=== PATIENT | male | born 1965 | race Caucasian/White ===

== ENCOUNTER → 2017-11-04 | Outpatient (CLI) | payer BC | END | disposition home or self-care (01) | LOC: GMAB 12:53 | PROVIDERS: ATTEND Family Medicine | DX: M10.9 Gout, unspecified (principal); K62.9 Disease of anus and rectum, unspecified; L97.429 Non-pressure chronic ulcer of left heel and midfoot with unspecified severity; Z00.01 Encounter for general adult medical examination with abnormal findings ==

== ENCOUNTER 2019-01-03 10:44 | Inpatient (IN) | payer BC, MEDICAID ==
--- NOTE | 2019-01-03 11:34 | ED.PDOC ---
History of Present Illness - General Chief Complaint: Abdominal Pain Stated Complaint: abdominal pain Time Seen by Provider: 01/03/19 11:22 Information Source: patient Exam Limitations: no limitations - History of Present Illness Initial Comments: Don Stark 53 y/o male brought by with sharp abdominal pain after he was unable to reduce ventral hernia this am had previous surgery in the past for umbilical hernia but noted recurrence seen local surgeon here in [place] recommending surgery but patient did not have follow up appointment.Also wears abdominal binder.No nausea/vomiting,no dysuria,no hematuria,no diarrhea or constipation.Had 5 cans of beers last night. Abdominal Pain Onset Location: other - midline Pain Radiation: no radiation Quality: moderate, dull Timing/Duration: 1-3 hours Improving Factors: nothing Worsening Factors: nothing Associated Symptoms: denies symptoms Review of Systems - Review of Systems Constitutional: States: no symptoms reported EENTM: States: no symptoms reported Respiratory: States: no symptoms reported Cardiology: States: no symptoms reported Gastrointestinal/Abdominal: States: see HPI Genitourinary: States: no symptoms reported Musculoskeletal: States: no symptoms reported Neurological: States: no symptoms reported All other Systems: Reviewed and Negative, No Change from Baseline Past Medical History (General) - Patient Medical History Hx Stroke: No Hx Congestive Heart Failure: No Hx Hypertension: Yes Hx Diabetes: Yes Hx Other PMH: Yes - neuropathy Surgical History: appendectomy - Vaccination History Hx Influenza Vaccination: No Hx Pneumococcal Vaccination: No - Social History Hx Tobacco Use: Yes Hx Alcohol Use: Yes - 5 beers or 2 shots of whiskey Hx Physical Abuse: No Hx Emotional Abuse: No Family Medical History - Family History Father Family History: Unknown Living Status: Unknown Hx Cardiac Disease: Yes - dad Hx Family;Other: MOM -liver cirrhosis Physical Exam - Physical Exam General Appearance: Alert, Comfortable, No apparent distress Eyes, Ears, Nose, Throat Exam: normal ENT inspection Neck: non-tender, full range of motion, supple, normal inspection Respiratory: chest non-tender, lungs clear, normal breath sounds, no respiratory distress Cardiovascular/Chest: normal peripheral pulses, regular rate, rhythm, no murmur Peripheral Pulses: No deficit Gastrointestinal/Abdominal: soft, other - reducible ventral hernia Back Exam: no CVA tenderness, no vertebral tenderness Neurologic: alert, oriented x 3 Skin Exam: normal color, warm/dry Progress - Progress Progress: 01/03/19 13:24 Vital Signs - 8 hr 01/03/19 01/03/19 10:58 11:54 Temperature 97.7 F Pulse Rate [ 88 82 Left Brachial] Respiratory 20 20 Rate Blood Pressure 151/110 156/112 [Left Arm] O2 Sat by Pulse 95 95 Oximetry - Results/Orders Results/Orders: 01/03/19 11:00 CARDIAC PANEL,ER Stat HEPATIC FUNCTION PANEL Stat LIPASE Stat 01/03/19 12:29 Binder:Abdominal .ONCE 01/03/19 15:15 LIPID PANEL Stat 01/03/19 15:18 GAMMA GLUTAMYL TRANSFERASE Stat Laboratory Results - last 24 hr 01/03/19 01/03/19 11:00 12:38 WBC 9.2 RBC 4.35 L Hgb 15.9 Hct 45.8 MCV 105.2 H MCH 36.5 H MCHC 34.7 RDW 14.9 H Plt Count 187 MPV 7.2 L Absolute Neuts (auto) 7.20 H Absolute Lymphs (auto) 1.10 Absolute Monos (auto) 0.70 Absolute Eos (auto) 0.10 Absolute Basos (auto) 0.10 Neutrophils % 78.3 H Lymphocytes % 12.1 L Monocytes % 7.5 Eosinophils % 1.5 Basophils % 0.6 RBC Morphology Plts gloria adequate PT 9.7 INR 0.97 PTT (SP) 30.0 Sodium 129 L Potassium 3.9 Chloride 93 L Carbon Dioxide 23 Anion Gap 16.9 BUN 7 Creatinine 0.55 L BUN/Creatinine Ratio 12.7 Random Glucose 93 Serum Osmolality 256.6 L Calcium 9.3 Magnesium 1.2 L Total Bilirubin 1.0 Direct Bilirubin 0.2 Indirect Bilirubin 0.8 AST 39 ALT 27 Alkaline Phosphatase 87 Creatine Kinase 29 L CK-MB (CK-2) 1.3 CK-MB (CK-2) % 4.48 H Troponin I < 0.02 Serum Total Protein 7.9 Albumin 3.9 Lipase 635 H Urine Color Yellow Urine Appearance Clear Urine pH 6.0 Ur Specific [place] 1.015 Urine Protein 100 H Urine Glucose (UA) Negative Urine Ketones Negative Urine Blood Small H Urine Nitrite Negative Urine Bilirubin Negative Urine Urobilinogen 0.2 Ur Leukocyte Esterase Negative Urine RBC 0-1 Urine WBC 0 Ur Epithelial Cells 0 Urine Bacteria 0 - EKG/XRAY/CT XRAY: chest - no acute process identified Xray Comments: abd-sono:no stone CBD or gallbladder CT Ordered: Yes - abd /p-stranding tail/body of pancreas;? pseudocyst Departure - Departure Clinical Impression: Ventral hernia without obstruction or gangrene Acute pancreatitis Qualifiers: Pancreatitis type: unspecified pancreatitis type Acute pancreatitis complication: unspecified Qualified Code(s): K85.90 - Acute pancreatitis without necrosis or infection, unspecified Time of Disposition: 15:23 Disposition: Admit Patient Condition: Fair Departure Forms: Patient Portal Self Enrollment Referrals: Shravan Estrada MD [Primary Care Provider] - 1-2 Weeks Home Medications: Ambulatory Orders Allopurinol 300 mg PO DAILY 01/03/19 Amlodipine Besylate 5 mg PO DAILY 01/03/19 Furosemide [Lasix] 20 mg PO DAILY 01/03/19 Lisinopril 20 mg PO BID 01/03/19 Metformin HCl 500 mg PO BID 01/03/19 Potassium Chloride [Micro-K] 10 meq PO DAILY 01/03/19 Decision To Admit - Decistion To Admit Decision to Admit Reason: Admit from ER Decision to Admit Date: 01/03/19 Decision to Admit Time: 15:22 - D/W Prasanth Lanier-ANP/Hospitalist
--- NOTE | 2019-01-03 12:20 | CT ---
Study: CT abdomen and pelvis. Indication: pain Technique: CT of the abdomen and pelvis obtained without intravenous contrast. This exam was performed according to our departmental dose-optimization program, which includes automated exposure control, adjustment of the mA and/or kV according to patient size and/or use of iterative reconstruction technique. Comparison: January 28, 2016. Findings: Patchy atelectasis in the lingula. Coronary artery and abdominal aortic atherosclerosis. Liver and gallbladder are unremarkable. Bilateral adrenal gland thickening, likely hyperplasia. Inflammation about the pancreatic tail and body junction consistent with acute pancreatitis. At the pancreatic tail there is a 1.6 cm fluid density lesion which is new compared to prior and may reflect a pseudocyst. Fluid noted about the spleen. Mild to moderate bilateral perinephric stranding, left greater than right, nonspecific. No hydronephrosis or nephrolithiasis. Bladder and prostate gland unremarkable. Progressed left paraumbilical hernia containing herniated omentum as well as a portions of the sigmoid colon and multiple loops of small bowel. No obstruction identified at this time. Stomach unremarkable. Appendix likely surgically absent. Scattered reactive size upper abdominal lymph nodes. No free air. Degenerative changes of the spine noted. Impression: Acute pancreatitis at the junction of the pancreatic body and tail with a low-density lesion at this site, likely a pseudocyst. Follow-up examination with contrast can be performed in 6 months to ensure resolution and no underlying mass lesion. Progressed left periumbilical hernia containing herniated loops of small bowel and sigmoid colon as well as omentum. Surgical consultation advised. No obstruction identified at this time. Additional findings as above. Electronically signed by: Eloy Andino MD 01/03/2019 12:18 PM COMMUTATOR OPERATOR
--- NOTE | 2019-01-03 12:50 | RAD ---
EXAM DESCRIPTION: Chest,1 View CLINICAL HISTORY: 53 years Male, pain COMPARISON: None. TECHNIQUE: AP portable chest. FINDINGS: Heart size is normal with normal pulmonary vascularity. No consolidating infiltrate. Left hemidiaphragm is mildly elevated. No pulmonary mass or worrisome nodule. No pneumothorax or pleural effusion. Bones are unremarkable. IMPRESSION: No acute process is identified in the chest. Electronically signed by: Parviz Banegas MD 01/03/2019 12:48 PM CHILD DAYCARE WORKER
--- NOTE | 2019-01-03 13:59 | US ---
EXAM DESCRIPTION: Gall Bladder: ULTRASOUND. CLINICAL HISTORY: pain epigastric and right upper quadrant. COMPARISON: CT abdomen and pelvis on this visit. TECHNIQUE: Transabdominal scanning: Ely-scale and Doppler modes. FINDINGS: Gallbladder: normal size, shape, echogenicity; no intraluminal stones or sludge. No fluid around the gallbladder. No wall thickening. 2.6 mm. Non-tender with transducer pressure. Common bile duct: caliber 3.9 mm within normal limits. Liver: Increased echogenicity; contour liver capsule smooth where seen. Minimal fluid around the liver. Intrahepatic biliary ducts normal caliber. Doppler hepatopedal flow portal vein.. Long axis right lobe 18 cm. Pancreas: Not well seen. Duct not seen. Aorta: Not well seen. Right kidney: 11.7 cm long axis. Normal cortical thickness and echogenicity. No hydronephrosis, perinephric fluid. Normal vascularity. IMPRESSION: 1. Liver borderline enlarged with fatty steatosis. Normal vascular caliber and flow and normal ducts. Minimal fluid abutting the liver. Gallbladder and common bile duct unremarkable.. 2. Unable to evaluate the pancreas due to patient body habitus and intestinal gas. Consider follow-up CT scan abdomen and pancreas with IV contrast in 6 month interval to evaluate possible pseudocyst seen on CT scan today. 3. Right kidney negative. Electronically signed by: Kelechi Salas MD 01/03/2019 1:56 PM SIGNAL INTELLIGENCE ANALYST
[2019-01-03] MEDS ORDERED: MAGNESIUM SULFATE PREMIX 2GM 2 GM in PREMIX BAG 1 BAG IVPB ONE (14:05)
[2019-01-03] MEDS ORDERED: MAGNESIUM SULFATE PREMIX 2GM 50 ML IVPB ONE (14:35)
[2019-01-03] MEDS ORDERED: GLUCAGON INJ 1 MG VIAL SUBCU PRN (15:20)
[2019-01-03] MEDS ORDERED: MORPHINE SULFATE INJ 10 MG/ML VIAL IV PRN (15:20)
[2019-01-03] MEDS ORDERED: DEXTROSE 50% 25 GM/50 ML SYG IV PRN (15:20)
[2019-01-03] MEDS ORDERED: SODIUM CHLORIDE 0.9% (FLUSH) 10 ML SYG IV PRN (15:20)
[2019-01-03] MEDS ORDERED: ONDANSETRON INJ 4 MG/2 ML VIAL IV PRN (15:20)
[2019-01-03] MEDS ORDERED: KETOROLAC TROMETHAMINE INJ 30 MG/ML VIAL IV ONE (15:23)
[2019-01-03] MEDS ORDERED: PROMETHAZINE HCL INJ 25 MG in SODIUM CHLORIDE 0.9% 50ML 50 ML IVPB PRN (15:23)
[2019-01-03] MEDS ORDERED: LACTATED RINGERS 1,000 ML IVS ONE (15:25)
--- NOTE | 2019-01-03 15:57 | HP ---
SUPERVISING PHYSICIAN: Manpreet Arnold M.D. CHIEF COMPLAINT: Left upper quadrant abdominal pain. HISTORY OF PRESENT ILLNESS: Mr. Stark is a 53 year-old male patient that presented to the Emergency Department last night accompanied by his . He was complaining of sharp abdominal pain after he was unable to reduce a large ventral hernia the morning prior to admission. He had previous surgery in the [facility] for the umbilical hernia but noted that he had a recurrence and has seen Dr. Dasilva in the past who recommended that the patient again have surgery, but he did not followup with his appointments. He also normally wears an abdominal binder. He was denying and actual nausea or vomiting, diarrhea or constipation. He does note that he drinks approximately 5 cans of beer at night and had drank last night. He denies ever having any issues related to similar symptoms, such as pancreatitis in the past. His workup in the E. R. showed that he did have an elevated lipase and amylase with initial lipase showing to be at 635. Amylase was 348. His liver functions were showing just a slightly elevated bilirubin and he was showing a mild hyponatremia. Vital signs showed that he was hemodynamically stable and is afebrile, but hypertensive with a blood pressure of 151/110, heart rate 88, satting 95% with respirations 20, temperature 97.7. Initial diagnostics included an abdominal/pelvis CT that showed per radiology interpretation the noncontrast CT with acute pancreatitis to be at the junction of the pancreatic body with the tail with a lower density lesion at the same site, likely a pseudocyst. He then had a gallbladder ultrasound and per radiology interpretation was note of liver borderline enlarged with fatty steatosis. Gallbladder and common bile duct were unremarkable. Pancreas was unable to be evaluated due to body habitus and intestinal gas. His chest x-ray showed no acute processes of a single view chest. Laboratory studies showed that he was showing a normal white count of 9,800 but did have a left shift and his RBC indices indicated a macrocytic presentation. Given the patient's history of frequent alcohol consumption, findings on his CT, abdominal pains and laboratory studies consistent with acute pancreatitis, Dr. Chin requested the patient be admitted for continuation of workup and treatment of underlying acute pancreatitis. He was admitted in stable condition. PAST MEDICAL HISTORY: 1. Hypertension. 2. Morbid obesity. 3. Gout. 4. Large umbilical hernia. 5. Type 2 diabetes mellitus on oral therapy. 6. Peripheral neuropathies, a complication from diabetes. PAST SURGICAL HISTORY: 1. Appendectomy in 2000. 2. Hernia repair with double hernia. HOME MEDICATIONS: 1. Allopurinol 300 mg daily. 2. Potassium chloride 10 mEq daily. 3. Metformin 500 mg b.i.d. 4. Lisinopril 20 mg b.i.d. 5. Lasix 20 mg daily. 6. Amlodipine 5 mg daily. ALLERGIES: NO KNOWN DRUG ALLERGIES. FAMILY HISTORY: Positive for hypertension in his father as well as deep venous thrombosis. Maternal grandfather had emphysema. Mother had type 2 diabetes. SOCIAL HISTORY: The patient is unemployed and on disability. He is by common law. Lives in [place], [place]. He has 4 stepchildren. He is a current tobacco smoker, 1 to 1-1/2 packs a day. He also drinks alcohol on a regular basis, typically daily. He initially reports that he drinks 3 to 5 beers and sometimes whiskey. He denied any recent binges. He denies any illicit drug usage recently, but has tried cocaine, LSD and marijuana in the past. REVIEW OF SYSTEMS: CONSTITUTIONAL: Denies any general malaise, weakness, fevers, chills, or unintentional weight changes. HEENT: Negative for any nasal congestion, ear ache, sore throat, headaches or visual disturbances. CHEST: Negative for any shortness of breath, wheezing, coughing, hemoptysis. CARDIOVASCULAR: Negative for any chest pains, palpitations, syncopal episodes or peripheral edema. GASTROINTESTINAL: As noted in History of Present Illness with left upper quadrant pain, negative for any reported nausea or vomiting, diarrhea or constipation. GENITOURINARY: Denies any dysuria, hematuria or polyuria. MUSCULOSKELETAL: Negative for any joint swelling or arthralgias. Positive for peripheral neuropathies in bilateral feet, complications from diabetes. NEUROLOGIC: Negative for any seizures, ataxia, syncopal episodes, vision changes or other focal deficits. Again positive for peripheral neuropathies. PHYSICAL EXAMINATION: VITAL SIGNS: Temperature in the E. R. was 97.7, pulse 88, blood pressure 151/110, respirations 20, satting 95% on room air. Admission weight is 85.4 kg. GENERAL: On admission to the Medical/Surgical floor the patient appears to be comfortable in no acute distress. He appears quite older than his stated age, very unkempt, disheveled. He is alert. HEENT: Tympanic membranes were partially obscured by cerumen bilaterally. Oropharynx was pink with dry mucosal membranes. Posterior pharynx was without any abnormal findings. No lesions were noted. NECK: Supple, non-tender with full range of motion. No jugular venous distention. CHEST: Lung sounds were clear throughout, just slightly diminished towards the bases. CARDIOVASCULAR: Regular rate and rhythm without any notable murmurs, gallops, or rubs. ABDOMEN: Obese with a very large umbilical hernia that is reducible without any notable complications on palpation. No rebound tenderness. No guarding. There is pain on palpation to the left upper quadrant. EXTREMITIES: Without any clubbing, cyanosis or edema. There is a large ecchymotic area on his right knee that is old in appearance reported from a fall in the past week with no deformity. BACK: Negative for CVA tenderness or paravertebral tenderness. No traumatic findings. NEUROLOGIC: He is alert and oriented times three. Facial features were symmetrical. Extraocular movements are within normal limits. There was no notable nystagmus. Facial features were symmetrical. No tremors noted. SKIN: [place], warm and dry with no obvious lesions, rashes, moles or sores. PSYCHIATRIC: He has had a very flat affect. Thought process is adequate. He denies any suicidal or homicidal ideations. No reported hallucinations, visual or tactile. LABORATORY: White count 9,200, hemoglobin 15.9, hematocrit 35.8. RBC indices indicated a macrocytic presentation with platelet count 187,000. Differential showed to be a slight left shift. Coagulation studies showed normal PT and PTT. Chemistries showed a mild hyponatremia at 129 with potassium 3.9, BUN 7, creatinine 0.55 with glucose 93, serum osmolality 256, calcium 9.3, magnesium 1.2. Iron studies are pending. Ferritin is pending. Liver functions are showing to be within normal limits except for a GGT that was elevated at 202. Troponin was less than 0.02. Lipid panel showed triglycerides at 59, cholesterol 161, LDL 40, HDL 100. Lipase 635. Vitamin B12, serum folate and folate were pending. Urinalysis showed 100 protein with small amount of blood. Otherwise within normal limits. MICROBIOLOGY: No microbiology specimens submitted. RADIOLOGY: He had an abdominal/pelvis x-ray without contrast in the E. R. and per radiology interpretation was significant for acute pancreatitis at the junction of the pancreatic body and tail with low density lesion at same site, likely a pseudocyst. He then had an ultrasound of the gallbladder and pancreas with the gallbladder not visualized due to body habitus and bowel gas per radiology interpretation as well as liver borderline enlarged with fatty steatosis. Normal vascular caliber and flow, and normal ducts. Minimal fluid abutting the liver. Gallbladder and common bile duct were noted to be unremarkable. Right kidney was unremarkable. Chest x-ray, single view chest in the E. R. shows no acute process identified in the chest. ASSESSMENT: 1. Acute pancreatitis by both laboratory studies with an elevated lipase and CT findings with a possible pancreatic pseudocyst, acute onset secondary to alcohol consumption and abuse. 2. Electrolyte imbalance to include a hyponatremia and hypomagnesemia secondary to alcohol abuse and consumption. 3. Probable pernicious anemia with RBC indices indicating macrocytic presentation with H&H possibly elevated due to dehydration with B12 and iron studies pending. 4. Hepatomegaly with findings of fatty steatosis due to chronic alcohol consumption likely alcoholic fatty liver. 5. Large ventral hernia complicated by morbid obesity without any current findings of acute complications. 6. Elevated liver functions to include GGT likely secondary to alcoholic fatty liver with no current evidence of cirrhosis. 7. Hypertension poorly controlled complicated by chronic alcohol dependency and acute onset of pain. 8. History of gout. 9. Diabetes mellitus type 2 on oral therapy. 10. Chronic nicotine abuse in a current smoker. 11. History of chronic alcohol abuse with no current signs or symptoms of acute delirium or withdrawals. PLAN: The patient will be admitted for treatment of acute pancreatitis and precautions for acute alcohol withdrawal in a patient with known history of excessive alcohol consumption. He will be made NPO for bowel rest. Will put him on a sliding scale per protocol. Will replace his magnesium as needed parenterally as well as start him on a multivitamin banana bag with thiamine and folic acid. Will continue with IV fluids and monitor still amylase and lipase. As he progresses clinically will advance his diet to clear liquids if tolerated. Will anticipate his length of stay to be probably 2 to 3 days. Will review his medications and update those as needed and verified as well as address his hypertension as he gets better control of his pain. I will start him on some low dose Librium scheduled hopefully to prevent any acute delirium secondary to alcohol withdrawal. I did discuss with him his need to stop drinking as well as smoking and he understands those, but as of yet says he is not interested in doing either one of them. Will continue to enforce his need as well as better control of his diabetes and close followup with his primary care provider. Until he can transition to outpatient management will continue to monitor and treat as needed. #[id number] MTDD
[2019-01-03] MEDS ORDERED: NICOTINE PATCH 21 MG TD ONE (16:28)
[2019-01-03] MEDS: IV SET AND CAP CHANGE INJ INJ SCH (16:32)
[2019-01-03] MEDS: NICOTINE PATCH 21 MG TD SCH (16:39)
[2019-01-03] MEDS: KCL 20 MEQ/NS 1,000 ML IVS PRN (17:41)
[2019-01-03] MEDS: INSULIN LISPRO 100 UNITS/ML PEN SUBCU SCH (18:19)
[2019-01-03] MEDS ORDERED: cloNIDine HCL 0.1 MG TAB PO ONE (22:48)
[2019-01-03] MEDS ORDERED: LISINOPRIL 10 MG TAB ONE (22:54)
[2019-01-03] MEDS: NON-FORMULARY MEDICATION 1 EA MIS (Lisinopril [Lisinopril] 20 MG) PO SCH (22:57)
[2019-01-04] MEDS: KCL 20 MEQ/NS 1,000 ML IVS PRN ×3 (00:07→10:07)
[2019-01-04] MEDS: INSULIN LISPRO 100 UNITS/ML PEN SUBCU SCH ×4 (00:50→18:37)
[2019-01-04] MEDS ORDERED: LISINOPRIL 10 MG TAB ONE (07:26)
[2019-01-04] MEDS: NON-FORMULARY MEDICATION 1 EA MIS (Lisinopril [Lisinopril] 20 MG) PO SCH (08:57)
[2019-01-04] MEDS: NICOTINE PATCH 21 MG TD SCH (08:58)
[2019-01-04] MEDS ORDERED: amLODIPine BESYLATE 5 MG TAB PO SCH (09:00)
[2019-01-04] MEDS ORDERED: amLODIPine BESYLATE 5 MG TAB PO ONE (10:52)
[2019-01-04] MEDS ORDERED: ALBUTEROL SULFATE 2.5 MG/3 ML VIAL NEB PRN (10:53)
[2019-01-04] MEDS ORDERED: SODIUM CHLORIDE 0.9% 1000ML 1,000 ML ONE (10:54)
[2019-01-04] MEDS ORDERED: THIAMINE HCL INJ 100 MG/ML VIAL ONE (10:54)
[2019-01-04] MEDS ORDERED: MULTIPLE VITAMIN 10 ML VIAL ONE (10:55)
[2019-01-04] MEDS ORDERED: chlordiazePOXIDE HCL 5 MG CAP ONE ×2 (10:55→14:44)
[2019-01-04] MEDS: MULTIPLE VITAMIN INJ 10 ML, THIAMINE HCL INJ 100 MG in SODIUM CHLORIDE 0.9% 1000ML 1,00... IVS SCH (11:00)
[2019-01-04] MEDS: chlordiazePOXIDE HCL 25 MG CAP PO SCH ×2 (11:01→14:46)
[2019-01-04] MEDS: FOLIC ACID,B6,B12 1 TAB PO SCH (11:02)
[2019-01-04] MEDS ORDERED: MAGNESIUM SULFATE PREMIX 2GM 2 GM in PREMIX BAG 1 BAG IVPB ONE (12:09)
[2019-01-04] MEDS ORDERED: MAGNESIUM SULFATE PREMIX 2GM 50 ML IVPB ONE (12:17)
[2019-01-04] MEDS: LEVALBUTEROL NEBS 1.25 MG/3 ML VIAL NEB SCH ×3 (14:19→23:47)
[2019-01-04] MEDS: LISINOPRIL 10 MG TAB PO SCH (20:43)
[2019-01-04] MEDS: chlordiazePOXIDE HCL 5 MG CAP PO SCH (20:45)
[2019-01-04] MEDS: ENOXAPARIN SODIUM 40 MG/0.4 ML SYG SUBCU SCH (20:45)
[2019-01-05] MEDS: INSULIN LISPRO 100 UNITS/ML PEN SUBCU SCH ×5 (00:13→21:17)
[2019-01-05] MEDS: KCL 20 MEQ/NS 1,000 ML IVS PRN ×2 (01:29→08:19)
--- NOTE | 2019-01-05 08:28 | PN ---
SUPERVISING PHYSICIAN: Alan Arnold MD DATE: 01/04/19 SUBJECTIVE: The patient says he is not having any pain today. He denied any nausea. He is requesting food, however, I have explained to him that we need to at least 12 to 24 hours NPO to allow time for his pancreas to calm down. We had a long discussion with him and his in regards to his alcohol abuse and nicotine addiction. Again, he is aware of this and contemplating possible ways to stop. However, he continues to present that he is really not interested in doing either one of those. He feels like he is able to control his diabetic neuropathy issues with his drinking. I again expressed to him that he needs to followup with his doctor as he has not seen him in well over a year. OBJECTIVE: VITAL SIGNS: Afebrile. Temperature 98.3. Pulse 84. Blood pressure 127/84. Respirations 18. Saturation 94% on room air. I&Os show positive balance of 1965 with 3065 in, 1100 out. Weight 75.4 kg. GENERAL: The patient appears much older than his stated age. He has had a shower today, so he is much more kept and not as disheveled. He is alert and shows no signs of any withdrawals currently. CHEST: Lungs remain clear throughout without any notable wheezing, but continues to be slightly diminished towards the bases. HEART: Regular rate and rhythm. ABDOMEN: Obese with extremely large ventral hernia with no signs of tenderness. He does have some continued mild tenderness on palpation to the left upper quadrant, but less compared to admission. Bowel sounds are present. EXTREMITIES: No cyanosis or edema. He continues to have a large old ecchymotic area to the right knee. NEUROLOGIC: Alert with no notable focal deficits, no tremors are noted. PSYCHIATRIC: Thought process is adequate. He still continues with a very slight affect. He continues to deny any hallucinations, either visual or tactile. LABORATORY: White count 7,700, hemoglobin down to 12.5, hematocrit 36.7 with continued macrocytosis and platelet count 138,000. Differential is without a left shift today. Chemistries show sodium 129, potassium 4.1, BUN 7, creatinine 0.52, serum osmolality 256, glucose 98, ferritin normal at 134, iron normal at 55, TIBC 278, iron saturation low at 19. ALT, AST and alkaline phosphatase are normal. We will repeat a GTT in the morning. Amylase 348, lipase down to 196, vitamin B12 291, folate 3.85. ASSESSMENT: 1. Acute pancreatitis demonstrated on laboratory studies including elevated lipase and amylase and CT findings with a possible pancreatic cyst, secondary to alcohol consumption and abuse. 2. Electrolyte imbalance with a persistent hyponatremia and hypomagnesemia, requiring ongoing evaluation and treatment, secondary to alcohol abuse and consumption. 3. Questionable pernicious anemia with macrocytosis and a slightly anemic presentation, probably due to chronic alcohol abuse. 4. Hepatomegaly with findings of fatty steatosis on ultrasound, probably due to chronic alcohol consumption and likely alcoholic fatty liver. 5. Large ventral hernia complicated by morbid obesity without any current complications. 6. Elevated GGT levels likely secondary to chronic alcohol consumption and alcoholic fatty liver with no current evidence of cirrhosis. 7. Hypertension, poorly controlled complicated by chronic alcohol dependency and likely acute pain from acute pancreatitis. 8. History of gout. 9. Diabetes mellitus, type 2, on oral therapy. 10. Chronic nicotine abuse in a current smoker. 11. History of chronic alcohol abuse without any current signs of acute delirium or withdrawals. PLAN: We will continue with the patient NPO and on fluids tonight. He is on sliding scale and has good control of his blood sugars. We will follow his amylase and lipase and labs including BMP to hopefully correct the hyponatremia and magnesium levels. He is on low dose Librium 10 mg to prevent secondary alcohol withdrawal symptoms. I started him on multivitamin infusion with thiamine and oral folic acid. Again, I reinforced the need to stop drinking and smoking. Again, the patient is not showing any evidence of motivation to do so, but we will continue to reinforce. Once transitioned to outpatient management, he will need close followup with his primary care provider who was Dr. Estrada. Since has not seen Dr. Estrada in well over a year, he is not being well controlled on either his hypertension or diabetes given his neuropathy and current blood pressures. Until he transitions to outpatient therapy, we will continue to monitor and treat as needed. #[id number] [facility]
[2019-01-05] MEDS: amLODIPine BESYLATE 5 MG TAB PO SCH (08:40)
[2019-01-05] MEDS: NICOTINE PATCH 21 MG TD SCH (08:41)
[2019-01-05] MEDS: chlordiazePOXIDE HCL 5 MG CAP PO SCH ×3 (08:41→20:44)
[2019-01-05] MEDS: FOLIC ACID,B6,B12 1 TAB PO SCH (08:41)
[2019-01-05] MEDS: LISINOPRIL 10 MG TAB PO SCH ×2 (08:41→20:45)
[2019-01-05] MEDS: LEVALBUTEROL NEBS 1.25 MG/3 ML VIAL NEB SCH ×2 (08:54→16:25)
[2019-01-05] MEDS ORDERED: MULTIPLE VITAMIN 10 ML VIAL ONE (11:19)
[2019-01-05] MEDS ORDERED: THIAMINE HCL INJ 100 MG/ML VIAL ONE (11:19)
[2019-01-05] MEDS ORDERED: SODIUM CHLORIDE 0.9% 1000ML 1,000 ML ONE (11:19)
[2019-01-05] MEDS: MULTIPLE VITAMIN INJ 10 ML, THIAMINE HCL INJ 100 MG in SODIUM CHLORIDE 0.9% 1000ML 1,00... IVS SCH (11:21)
[2019-01-05] MEDS ORDERED: MAGNESIUM SULFATE PREMIX 2GM 2 GM in PREMIX BAG 1 BAG IVPB ONE (15:22)
[2019-01-05] MEDS ORDERED: MAGNESIUM SULFATE PREMIX 2GM 50 ML IVPB ONE (15:34)
--- NOTE | 2019-01-05 17:13 | PN ---
DATE: 01/05/19 SUPERVISING PHYSICIAN: Manpreet Arnold M.D. SUBJECTIVE: The patient is sitting up in his chair. He has no complaints of abdominal pain, nausea or vomiting. He has not required any pain medication since yesterday nor has he had any antinausea medicine. He tolerated his clear liquid breakfast and lunch without problem. Again, we discussed his smoking cessation as well as stopping alcohol consumption. We also spoke about his followup with a physician and he will need to see a surgical consultation due to his umbilical hernia. OBJECTIVE: VITAL SIGNS: Temperature 98.6, heart rate 78, blood pressure 133/87, respiratory rate 20, O2 sat 100% on room air. RESPIRATORY: Essentially clear to auscultation bilaterally. He is slightly diminished at the bases. CARDIAC: Regular rate and rhythm. GASTROINTESTINAL: Abdomen is soft. It is nondistended, non-tender. He does have a very large umbilical hernia. Bowel sounds are positive. NEUROLOGIC: He is awake, alert and oriented times three. LABORATORY: Blood sugars have run between 85 and 117. Sodium 130, potassium 4.1, chloride 101, carbon dioxide 21, BUN 6, creatinine 0.45, calcium 8.2, magnesium 1.6. Amylase 209, lipase 148. All other labs and films have been reviewed via the EMR. ASSESSMENT: 1. Acute pancreatitis demonstrated on laboratory studies including elevated lipase and amylase and CT findings showing a possible pancreatic cyst, likely secondary to alcohol consumption and abuse. 2. Electrolyte imbalance with persistent hyponatremia and hypomagnesemia, requiring supplementation. 3. Questionable pernicious anemia with macrocytosis and a slightly anemic presentation, may be due to chronic alcohol abuse. 4. Hepatomegaly with findings of fatty steatosis on ultrasound. 5. Large umbilical hernia complicated by morbid obesity without any current complications and needing surgical consultation as an outpatient no discharge. 6. Elevated GGT levels likely secondary to chronic alcohol consumption and alcoholic fatty liver disease with no current evidence of cirrhosis. 7. Hypertension, poorly controlled. 8. History of gout. 9. Type 2 diabetes mellitus. 10. Chronic nicotine abuse in a current smoker. 11. History of chronic alcohol abuse without any current signs of acute delirium or withdrawals. PLAN: We will continue present supportive care. I have advanced his diet earlier today to clear liquids. He has tolerated that without any issues and have advanced it to a bland diet this evening. I have discontinued his IV. I will repeat his lab in the morning. I will also discuss his case with Dr. Dasilva. He will not see him in the hospital, but will need a surgical consultation on discharge. If he continues without any needs for antiemetics or pain medications and his amylase and lipase improve overnight, he may be able to be discharged tomorrow or the next day with close followup with his primary care physician. Otherwise will continue to monitor him closely and follows a needed. Dr. Arnold is the collaborating physician available for consultation. #[id number] [facility]
[2019-01-05] MEDS: ENOXAPARIN SODIUM 40 MG/0.4 ML SYG SUBCU SCH (20:46)
[2019-01-06] MEDS: LEVALBUTEROL NEBS 1.25 MG/3 ML VIAL NEB SCH ×2 (00:35→08:55)
[2019-01-06] MEDS: INSULIN LISPRO 100 UNITS/ML PEN SUBCU SCH ×2 (07:21→11:45)
[2019-01-06] MEDS: chlordiazePOXIDE HCL 5 MG CAP PO SCH ×2 (08:05→14:43)
[2019-01-06] MEDS: LISINOPRIL 10 MG TAB PO SCH (08:05)
[2019-01-06] MEDS: FOLIC ACID,B6,B12 1 TAB PO SCH (08:05)
[2019-01-06] MEDS: amLODIPine BESYLATE 5 MG TAB PO SCH (08:06)
[2019-01-06] MEDS: NICOTINE PATCH 21 MG TD SCH (08:06)
[2019-01-06] MEDS: MULTIPLE VITAMIN INJ 10 ML, THIAMINE HCL INJ 100 MG in SODIUM CHLORIDE 0.9% 1000ML 1,00... IVS SCH (11:00)
[2019-01-06 14:15] VITALS: BP 118/83; TEMP 98; O2SAT 100
[2019-01-06] MEDS: IV SET AND CAP CHANGE INJ INJ SCH (16:21)
--- NOTE | 2019-01-10 09:19 | DS ---
SUPERVISING PHYSICIAN: Alan Arnold MD DISCHARGE DIAGNOSIS: 1. Acute pancreatitis demonstrated on laboratory studies including elevated lipase and amylase and CT findings showing a possible pancreatic cyst, likely secondary to alcohol consumption and abuse. 2. Electrolyte imbalance with persistent hyponatremia and hypomagnesemia, requiring supplementation. 3. Questionable pernicious anemia with macrocytosis and a slightly anemic presentation, may be due to chronic alcohol abuse. 4. Hepatomegaly with findings of fatty steatosis on ultrasound. 5. Large umbilical hernia complicated by morbid obesity without any current complications and needing surgical consultation as an outpatient on discharge. 6. Elevated GGT levels likely secondary to chronic alcohol consumption and alcoholic fatty liver disease with no current evidence of cirrhosis. 7. Hypertension, poorly controlled. 8. History of gout. 9. Type 2 diabetes mellitus. 10. Chronic nicotine abuse in a current smoker. 11. History of chronic alcohol abuse without any current signs of acute delirium or withdrawals. HISTORY OF PRESENT ILLNESS: This is a 53-year-old male patient who came to the hospital Emergency Department on the night prior to his admission. He complained of sharp abdominal pain after he was unable to reduce a large umbilical hernia the morning prior to admission. He had previous surgery in the past for the umbilical hernia but noted that he had a recurrence and has seen Dr. Dasilva in the past who recommended that the patient again have surgery, but he did not followup with his appointments. He also normally wears an abdominal binder, but since he did not followup on his appointments, he is not wearing it as recommended. He drinks approximately 5 cans of beer at night and had drank last night. His workup in the Emergency Room showed that he did have an elevated lipase and amylase with initial lipase at 635. Amylase was 348. His liver function tests showed a slightly elevated bilirubin and a mild hyponatremia. Vital signs showed that he was hemodynamically stable and afebrile, but hypertensive with a blood pressure of 151/110, heart rate 88, O2 saturation 95% with respirations 20, temperature 97.7. Initial diagnostics included an abdominal/pelvis CT that showed per radiology interpretation the noncontrast CT with acute pancreatitis to be at the junction of the pancreatic body with the tail with a lower density lesion at the same site, likely a pseudocyst. He then had a gallbladder ultrasound and per radiology interpretation showed liver borderline enlarged with fatty steatosis. Gallbladder and common bile duct were unremarkable. Pancreas was unable to be evaluated due to body habitus and intestinal gas. His chest x-ray showed no acute processes on a single view chest. Laboratory studies showed a normal white count of 9,800 but did have a left shift on his differential and his RBC indices indicated a macrocytic presentation. Given the patient's history of frequent alcohol consumption, findings on his CT, abdominal pains and laboratory studies consistent with acute pancreatitis, Dr. Chin requested the patient be admitted for continuation of workup and treatment of underlying acute pancreatitis. He was admitted to the hospital in stable condition. HOSPITAL COURSE: The patient was admitted and treated with bowel rest with fluids. He was put on a sliding scale insulin per protocol. He was given magnesium replacement. He was also given a banana bag with multivitamin, thiamine and folic acid. His amylase and lipase were monitored daily. His home medications were updated. It was discussed with the patient at length that he needed to stop drinking alcohol to excess as well as stopping smoking. Librium was scheduled to prevent any alcohol withdrawal. He had minimal pain for the initial portion of his hospital stay and mild nausea. His diet was advanced slowly. He finally at 24 hours was pain free with no nausea or vomiting His diet was advanced slowly and he was eventually given a low-fat diet. I talked to Dr. Dasilva in regards to his very large umbilical hernia and he felt like he could have a workup as an outpatient on discharge for a cardiac stress test and a pulmonary evaluation. He was going to -[id number] -[id number]- stop smoking and drinking. We also discussed diabetic control to help his neuropathy symptoms. His diet was advanced slowly. He finally at 24 hours was pain free with no nausea or vomitingToday, he will be discharged home in stable condition. LABORATORY: WBCs remained stable running between 9.2 and 6.9. Hemoglobin 11.2, hematocrit 34.4. Platelet count 139. Sodium 130, potassium 3.6, chloride 102, BUN 7, creatinine 0.81. Blood sugars ran between 102 and 117. He had a slightly low magnesium, today it is 1.7 and that was replaced with magnesium. His bilirubin went down to 0.8. Amylase went down to 200. Lipase went down to 136. RADIOLOGY: As per history of present illness. DISCHARGE PLAN: The patient was to be discharged home in stable condition. It is again recommended that he quit smoking as well as quit drinking. At some point, he needs to have his large umbilical hernia evaluated. It would be beneficial to get cardiac and pulmonary clearance before surgery on the hernia. He is to have a low-fat diet, resume his physical activity as tolerated. He has an appointment with Dr. Estrada on 01/11/19 at 2:30 PM. He is to get lab prior to his appointment with Dr. Estrada. I have given him an order to do lab on Wednesday, January 10, 2019 for CMP, amylase and lipase. He is to return to the hospital for any problems or complications. 1. Potassium chloride. 2. Amlodipine 10 mg. 3. Allopurinol 300 mg. 4. Albumin nebulizers. 5. Furosemide. 6. Metformin. #[id number] [facility]
== END 2019-01-06 16:49 | disposition home or self-care (01) | DRG 439 ==
LOC: ER 10:44 → MS 15:56
PROVIDERS: ADMIT Nurse Practitioner Family; ATTEND Nurse Practitioner Acute Care
DX: K85.20 Alcohol induced acute pancreatitis without necrosis or infection (principal); E87.1 Hypo-osmolality and hyponatremia; K76.0 Fatty (change of) liver, not elsewhere classified; F10.20 Alcohol dependence, uncomplicated; K42.9 Umbilical hernia without obstruction or gangrene; I10 Essential (primary) hypertension; M10.9 Gout, unspecified; D51.0 Vitamin B12 deficiency anemia due to intrinsic factor deficiency; E86.0 Dehydration; E11.40 Type 2 diabetes mellitus with diabetic neuropathy, unspecified; E66.01 Morbid (severe) obesity due to excess calories; F17.210 Nicotine dependence, cigarettes, uncomplicated; Z79.84 Long term (current) use of oral hypoglycemic drugs; Z79.899 Other long term (current) drug therapy

== ENCOUNTER → 2019-01-09 | Outpatient (CLI) | payer BC, MEDICAID | LOC: LAB.O 13:24 | PROVIDERS: ATTEND Nurse Practitioner Acute Care | DX: K85.90 Acute pancreatitis without necrosis or infection, unspecified (principal) ==

== ENCOUNTER → 2019-06-14 | Outpatient (CLI) | payer BC, MEDICAID | LOC: YCFC.O 12:27 | PROVIDERS: ATTEND Family Medicine | DX: E87.1 Hypo-osmolality and hyponatremia (principal) ==

== ENCOUNTER → 2019-07-14 | Outpatient (CLI) | payer BC, MEDICAID | LOC: LAB.O 10:08 | PROVIDERS: ATTEND Family Medicine | DX: E11.9 Type 2 diabetes mellitus without complications (principal); I10 Essential (primary) hypertension; E87.1 Hypo-osmolality and hyponatremia; R53.83 Other fatigue ==

== ENCOUNTER → 2019-09-15 | Outpatient (CLI) | payer BC, MEDICAID ==
--- NOTE | 2019-09-16 12:05 | CT ---
Procedure: CT LUNG SCREENING Exam Date: 09/15/2019. Ordering Provider: Shravan Estrada Clinical Indication: NICOTINE DEPENDENCE . Current cigarette smoker. 55 pack years. This patient meets eligibility criteria for low-dose CT lung cancer screening. Comparison: Chest x-ray December 2018. Technique: Using a multislice scanner, sequential helical axial imaging was obtained in the thorax, 2.5 mm thickness, 2.5 mm separation, from the level of the thoracic inlet through the lung bases without IV contrast. A low dose protocol was utilized for BMI less than 30: BMI: 28.9. CTDI: 1.76 mGy. 120. kVp. 45 mA. 2D sagittal and coronal reconstructed images, 6.0 mm thickness, were obtained. This exam was performed according to our departmental dose optimization program which includes use of automated exposure control, adjustment of the mA and/or kV according to patient size and/or use of iterative reconstruction technique. Nodule measurements under 10 mm are given as mean value of 3 axes diameters. FINDINGS: Lungs and large airways: Small bilateral uniform blebs centrilobular distribution and more prevalent in the upper lung vyas. Subpleural 3 mm groundglass nodule lateral left upper lobe on image 2/54. Similar sized subpleural groundglass nodules right upper lobe. Pleural parenchymal scarring in the inferior right middle lobe and inferior lingula. 3 mm parenchymal nodule versus pleural thickening superior lateral and medial diaphragm on image 2/102. Pleura and space: Bilateral minimal focal thickening otherwise negative. Mediastinum and maggy: evaluation limited by low dose technique and lack of IV contrast. Normal sized lymph nodes. No dominant soft tissue masses. Heart and great vessels: Sclerotic coronary vessels with possible stents. Also atherosclerotic calcifications in the thoracic aorta and aortic arch Chest wall, lower neck, axillae: Evaluation also limited by same factors as described above. Bilateral scattered normal size axillary nodes. Upper abdomen: Evaluation limited by low-dose technique. Possible left adrenal mass 1.9 x 1.4 cm with Hounsfield density -24 consistent with an adenoma. No free fluid or free air in the included peritoneal space. Osseous structures: Evaluation limited by low dose MIP technique. Spondylosis of the included thoracic spine and minimal arthrosis of the bilateral sternoclavicular joints. No lytic or blastic lesions. IMPRESSION: Solid and groundglass subpleural nodules bilaterally 3 mm diameter or less. Nodule versus pleural thickening abutting left lateral hemidiaphragm. No abnormal nodule and no mass. No focal infiltrate . [facility] Best Practice Recommendations: please see below for Lung RADS category and FOLLOW-UP.* *Lung RADS category CATEGORY 2- Nodules with a very low likelihood (less than 1%) of becoming a clinically active cancer due to size or lack of growth. Nodules: Perifissural nodule(s) < 10 mm. (526mm3). Solid or part solid nodule(s) less than 6mm (113.1 mm3), new solid nodule less than 4mm (33.5 mm3). Ground glass nodule(s) less than 30mm (54044.2 mm3) or unchanged or slow growing ground glass nodule 30mm or greater. Cat 3 or 4 nodule unchanged for 3 or more months. FOLLOW-UP: Continue annual screening with a Low Dose Chest CT in 12 months for re-evaluation. Electronically signed by: Kelechi Salas MD 09/16/2019 12:03 PM CDT
--- NOTE | 2019-09-16 12:58 | CT ---
EXAM DESCRIPTION: Abdomen/Pelvis w/wo Contrast: Computed Tomography. CLINICAL HISTORY: PANCREATITIS WITHOUT NECROSIS OR INFECTION COMPARISON: None. TECHNIQUE: Spiral-axial scans at 5 x 5 mm intervals through the abdomen and pelvis before and after 75 mL Optiray 320 nonionic IV contrast. No oral contrast. Coronal and sagittal 2.0 mm reconstructions. 5 mm Delayed helical-axial scans, liver through the pubic symphysis. No adverse reactions. Total Exam DLP 2878.9 mGy - cm. This exam was performed according to our departmental CT dose-optimization program which includes automated exposure control, adjustment of the mA and/or kV according to patient size and/or use of iterative reconstruction technique; to reduce radiation dose to as low as reasonably achievable (ALARA). FINDINGS: Abdominal Wall/Back Soft Tissues: The umbilical hernia has enlarged since the prior study with the neck now measuring 2.3 cm craniocaudal and 4.7 cm transverse. The hernia sac measures 12.8 cm transverse, 11.1 cm craniocaudal and 4.6 cm AP. Small bowel can be seen in the hernia sac with air-fluid levels and minimal distention. Minimal fatty stranding in the mesentery or abutting the hernia neck and in the hernia sac with no dominant solid mass or cyst. Air-fluid levels also noted in the efferent and afferent small bowel segments around the hernia. Small bilateral inguinal hernias not containing bowel. Lung bases and pleura: Please see CT lung screening images and report from today. Liver, Stomach, Spleen, Adrenal Glands: 1.7 x 1.3 cm left adrenal mass with Hounsfield density -22. Consistent with a adrenal adenoma. Long axis right lobe of the liver 18.8 cm. No focal lesions and no ascites. Splenic calcifications. Stomach and other solid organs are negative. Pancreas, Gallbladder, Ducts: Negative. Pancreatitis has resolved since the prior study.. Kidneys and Ureters: Unremarkable except for atherosclerotic calcifications. Mesentery: Involved in the hernia as described above. Symmetric stranding and fascial thickening. No free air or free fluid. Aorta: Diffuse atherosclerotic calcifications predominantly infrarenal aorta extending into the bilateral common iliac arteries and common femoral arteries. Approximately 50% diameter stenosis bilateral common iliac arteries. Small Bowel: Multiple mild air-fluid levels with minimal distention but no transition point. Terminal Ileum/Cecum: Elevated from the normal position in the lateral right upper abdomen. Surgical clips in the inferior cecum at the site of appendiceal resection. Colon: Minimally distended. No significant air-fluid levels. Moderate redundancy of the sigmoid colon which extends into the right lower quadrant of the abdomen. Pelvic Organs: Minimal bladder distention with wall thickening and mass effect from the prostate gland which also has calcifications. Also mass effect on the seminal vesicles. No free fluid. Spine and Bony Pelvis: Spondylosis lower thoracic spine. No lytic or blastic lesions. IMPRESSION: 1. Pancreatitis has resolved since the prior study with no complications or evidence of mass. 2. Right periumbilical hernia has enlarged since the prior study at the opening and also in the sac which contains small bowel. Air-fluid levels and minimal distention within the sac and also in the afferent and efferent small bowel segments. Minimal edema but no fluid collection. This could indicate impending incarceration or obstruction. 3. Diffuse atherosclerotic calcification distal abdominal aorta and bilateral common iliac arteries with stenosis stable in the common iliac arteries. 3. Stable adrenal adenoma on the left. Stable enlargement of the liver with no focal lesions. Electronically signed by: Kelechi Salas MD 09/16/2019 12:57 PM CDT
== END ==
LOC: CT 09:08
PROVIDERS: ATTEND Family Medicine
DX: Z87.891 Personal history of nicotine dependence (principal); K85.90 Acute pancreatitis without necrosis or infection, unspecified; K42.9 Umbilical hernia without obstruction or gangrene; I70.0 Atherosclerosis of aorta; I70.8 Atherosclerosis of other arteries; D35.00 Benign neoplasm of unspecified adrenal gland; R16.0 Hepatomegaly, not elsewhere classified; R91.8 Other nonspecific abnormal finding of lung field; I10 Essential (primary) hypertension
CPT/HCPCS: 36415; 74178; 82565; 84520; G0297

== ENCOUNTER → 2019-10-04 | Outpatient (CLI) | payer BC, MEDICAID ==
--- NOTE | 2019-10-04 09:58 | RAD ---
EXAM DESCRIPTION: Knee,Left Complete CLINICAL HISTORY: 54 years Male, PAIN IN LEFT KNEE TECHNIQUE: 3 views of the left knee were performed. COMPARISON: None available. FINDINGS: The visualized bones appear well mineralized. No acute fracture or dislocation. Mild tricompartmental osteoarthritis. The soft tissues appear grossly unremarkable. IMPRESSION: Mild tricompartmental osteoarthritis of the left knee. Electronically signed by: Jeanie Garcia MD 10/04/2019 9:[address] [facility]
== END ==
LOC: YCFC.O 09:18
PROVIDERS: ATTEND Family Medicine
DX: M17.12 Unilateral primary osteoarthritis, left knee (principal); E11.9 Type 2 diabetes mellitus without complications; I10 Essential (primary) hypertension

== ENCOUNTER → 2020-01-04 | Outpatient (CLI) | payer BC, MEDICAID | LOC: LAB.O 10:19 | PROVIDERS: ATTEND Family Medicine | DX: I10 Essential (primary) hypertension (principal); E11.9 Type 2 diabetes mellitus without complications; R74.8 Abnormal levels of other serum enzymes ==

== ENCOUNTER → 2020-05-03 | Outpatient (CLI) | payer BC, OTHER | LOC: YCFC.O 11:27 | PROVIDERS: ATTEND Family Medicine | DX: E11.9 Type 2 diabetes mellitus without complications (principal); I10 Essential (primary) hypertension; E53.8 Deficiency of other specified B group vitamins; R53.83 Other fatigue; Z12.5 Encounter for screening for malignant neoplasm of prostate ==

== ENCOUNTER → 2020-11-06 | Outpatient (CLI) | payer BC, OTHER | LOC: YCFC.O 09:25 | PROVIDERS: ATTEND Family Medicine | DX: E11.9 Type 2 diabetes mellitus without complications (principal); I10 Essential (primary) hypertension; E78.5 Hyperlipidemia, unspecified; R74.8 Abnormal levels of other serum enzymes ==

== ENCOUNTER → 2020-12-10 | Outpatient (CLI) | payer BC, OTHER ==
--- NOTE | 2020-12-11 15:44 | CT ---
Procedure: CT LUNG SCREENING Exam Date: December 10, 2020 Ordering Provider: Shravan Estrada Clinical Indication: TOBACCO USE . Current cigarette smoker. 55 pack-years. This patient meets eligibility criteria for low-dose CT lung cancer screening. Comparison: Low-dose CT lung cancer screening examination August 2019. Technique: Using a multislice scanner, sequential helical axial imaging was obtained in the thorax, 2.5 mm thickness, 2.5 mm separation, from the level of the thoracic inlet through the lung bases without IV contrast. A low dose protocol was utilized for BMI less than 30: BMI: 29. CTDI: 1.75 mGy. 120. kVp. 45 mA. DLP 68 mGy-cm. 2D sagittal and coronal reconstructed images, 6.0 mm thickness, were obtained. This exam was performed according to our departmental dose optimization program which includes use of automated exposure control, adjustment of the mA and/or kV according to patient size and/or use of iterative reconstruction technique. Nodule measurements under 10 mm are given as mean value of 3 axes diameters. FINDINGS: Lungs and large airways: Small bilateral centrilobular blebs mostly in the upper lobes. Bilateral pleural-parenchymal scarring. No significant sized bilateral small ground nodules subpleural in the upper lobes stable since the prior study. No new nodules and no mass. No interval infiltrate or new focal process. Pleura and space: Stable with no acute process. Mediastinum and maggy: evaluation limited by low dose technique and lack of IV contrast. No interval change in small lymph nodes. No dominant soft tissue masses. Heart and great vessels: Coronary artery calcifications and atherosclerotic calcifications in the aortic arch, several brachiocephalic vessels, and descending thoracic aorta show no change since the prior study. Chest wall, lower neck, axillae: Evaluation also limited by same factors as described above. No interval change in bilateral, Normal-sized axillary and subclavian nodes. Upper abdomen: Evaluation limited by low-dose technique. Bilateral prominent adrenal glands with fatty density less than -20 consistent with adenomas and stable. No free air or free fluid. Atherosclerotic abdominal aorta and including major branch vessels. Calcification also stable. Osseous structures: Evaluation limited by low dose MIP technique. Multiple levels of thoracic spondylosis. Also shoulder, clavicle, and cisternal arthrosis. No interval change. IMPRESSION: 1. Minimal bilateral upper lobe emphysematous changes. Also stable bilateral subdural groundglass densities/nodules which are clinically insignificant in size. No abnormal nodules and no mass. No new focal process, no interval development of infiltrate. [facility] Best Practice Recommendations: please see below for Lung RADS category and FOLLOW-UP.* *Lung RADS category Category 1 - No nodule or definitely benign nodules (probability of malignancy less than 1%). Follow-up: Continue annual screening with Low Dose Chest CT in 12 months. Electronically signed by: Kelechi Salas MD 12/11/2020 3:42 PM [facility]
== END ==
LOC: CT 14:07
PROVIDERS: ATTEND Family Medicine
DX: Z72.0 Tobacco use (principal); J43.9 Emphysema, unspecified; R91.8 Other nonspecific abnormal finding of lung field

== ENCOUNTER 2020-12-13 10:16 | Inpatient (IN) | payer BC, OTHER ==
[2020-12-13] MEDS ORDERED: ONDANSETRON INJ 4 MG/2 ML VIAL IV ONE (10:32)
[2020-12-13] MEDS ORDERED: fentaNYL CITRATE INJ 50 MCG/ML 2 ML AMP IV ONE (10:32)
--- NOTE | 2020-12-13 10:37 | ED.PDOC ---
History of Present Illness - General Chief Complaint: Abdominal Pain Stated Complaint: left sided abd pain Time Seen by Provider: 12/13/20 10:22 - History of Present Illness Initial Comments: 55-year-old male positive past medical history of hypertension, diabetes, tobacco abuse, daily alcohol use of 8 beers presents to ED with acute onset of epigastric abdominal pain with posterior radiation into back. Patient has associated nausea with nonbloody nonbilious emesis. Patient does have a chronic cough due to his smoking and tobacco use, but denies any acute change. Denies any known sick exposures. He denies associated chest pain, shortness of breath, nasal congestion, sore throat, loss of taste or smell, diarrhea, or urinary symptoms. Denies alleviating/aggravating factors. Positive history of similar symptoms and states it was diagnosed as pancreatitis due to alcohol use. He has stopped using hard liquor and only drinks approximately 8 beers daily. Patient denies any other symptoms and/or complaints at this time. Review of Systems - Review of Systems Constitutional: Denies: chills, fever EENTM: Denies: nose congestion, throat pain Respiratory: States: cough - unchanged, chronic. Denies: short of breath Cardiology: States: edema - chronic, unchanged. Denies: chest pain Gastrointestinal/Abdominal: States: abdominal pain, nausea, vomiting. Denies: constipation, diarrhea Musculoskeletal: States: back pain. Denies: muscle pain Skin: Denies: change in color, rash Neurological: Denies: headache, numbness Hematologic/Lymphatic: Denies: easy bruising Past Medical History (General) - Patient Medical History Hx Seizures: Yes Hx Stroke: No Hx Asthma: No Hx of COPD: No Hx Congestive Heart Failure: No Hx Pacemaker: No Hx Hypertension: Yes Hx Diabetes: Yes Hx Gastroesophageal Reflux: Yes Hx MRSA: No - Vaccination History Hx Influenza Vaccination: Yes Hx Pneumococcal Vaccination: No - Social History Hx Tobacco Use: Yes Hx Alcohol Use: Yes - 5-6 daily mostly beer Hx Substance Use: No Hx Physical Abuse: No Hx Emotional Abuse: No Family Medical History - Family History Father Family History: Unknown Living Status: Unknown Hx Cardiac Disease: Yes - dad Hx Family;Other: MOM -liver cirrhosis Physical Exam - Physical Exam General Appearance: Alert, Other - non-toxic, not ill appearing, mild distress Eyes, Ears, Nose, Throat Exam: PERRL/EOMI, normal ENT inspection Neck: supple, normal inspection, other - No JVD Respiratory: no respiratory distress, no accessory muscle use, other - + rhonchi with trace rales, no wheezing, no tachypnea, no accessory muscle use Cardiovascular/Chest: regular rate, rhythm, no JVD, no murmur, other - +1 pitting edema BLE, symmetric Gastrointestinal/Abdominal: soft, other - +epigastric TTP, no rebound, no guarding, no peritoneal signs, periumbilical hernia is nontender with no signs of incarceration/strangulation, no CVAT bilaterally Back Exam: no CVA tenderness Extremity: non-tender, pedal edema Neurologic: alert, normal mood/affect, oriented x 3 Skin Exam: normal color, warm/dry, other - no rash, no jaundice, not pale Progress - Progress Progress: Yehuda José DO Emergency Medicine Physician [id number] Appropriate PPE of surgical mask, gown, gloves, and eye protection (if encounter >5 minutes) utilized with every patient encounter; in accordance with hospital policy. Presents for acute pancreatitis. Low clinical concern for abdominal dissection/aneurysm. No clinical concern for hernia incarceration/strangulation. I will perform imaging, labs, provide appropriate pharmacotherapy, and continue to monitor/reassess. Dispo will depend on imaging and lab results and overall course in ED. 12:22 I have consulted with Hospitalist Prasanth Lanier and discussed patient's case in ED. He agrees with admission of patient and requests starting patient on Librium due to concern for potential alcohol withdrawal. 12:25 Rechecked pt. NAD, VSS. I have discussed radiology results, lab results, my clinical impression, and diagnosis. I have also discussed need for admission. Pt voices understanding, agrees with plan, and all questions answered. - Results/Orders Results/Orders: EKG @1040: read @1044. NSR @ 83, LAFB, QRS 110, ND and QTc wnl, no ST elevations/depressions, nonspecific ST/T-wave changes. No STEMI. No prior EKG's in [facility] for comparison. 12/13/20 10:45 EKG STAT 12/13/20 12:21 ED Intent to Admit Routine 12/13/20 12:30 [email or web address] HCL [Librium] 50 mg PO Q6HR Laboratory Results - last 24 hr 12/13/20 12/13/20 12/13/20 10:30 10:30 10:30 WBC 7.0 RBC 3.84 L Hgb 13.0 L Hct 38.0 L MCV 99.1 H MCH 34.0 H MCHC 34.3 RDW 14.5 Plt Count 188 MPV 6.8 L Absolute Neuts (auto) 5.40 Absolute Lymphs (auto) 0.80 L Absolute Monos (auto) 0.50 Absolute Eos (auto) 0.30 Absolute Basos (auto) 0.10 Neutrophils % 76.7 Lymphocytes % 10.9 L Monocytes % 6.7 Eosinophils % 4.9 Basophils % 0.8 Sodium 121 L Potassium 5.6 H Chloride 94 L Carbon Dioxide 18 L Anion Gap 14.6 BUN 12 Creatinine 1.24 BUN/Creatinine Ratio 9.7 L Random Glucose 103 Serum Osmolality 244.1 L* Lactic Acid Calcium 8.8 Total Bilirubin 0.6 AST 24 ALT 24 Alkaline Phosphatase 64 Troponin I < 0.02 Serum Total Protein 7.1 Albumin 3.8 Globulin 3.3 Albumin/Globulin Ratio 1.2 Lipase 497 H Urine Color Urine Appearance Urine pH Ur Specific [place] Urine Protein Urine Glucose (UA) Urine Ketones Urine Blood Urine Nitrite Urine Bilirubin Urine Urobilinogen Ur Leukocyte Esterase Urine RBC Urine WBC Ur Epithelial Cells Urine Bacteria 12/13/20 12/13/20 10:30 11:43 WBC RBC Hgb Hct MCV MCH MCHC RDW Plt Count MPV Absolute Neuts (auto) Absolute Lymphs (auto) Absolute Monos (auto) Absolute Eos (auto) Absolute Basos (auto) Neutrophils % Lymphocytes % Monocytes % Eosinophils % Basophils % Sodium Potassium Chloride Carbon Dioxide Anion Gap BUN Creatinine BUN/Creatinine Ratio Random Glucose Serum Osmolality Lactic Acid 0.8 Calcium Total Bilirubin AST ALT Alkaline Phosphatase Troponin I Serum Total Protein Albumin Globulin Albumin/Globulin Ratio Lipase Urine Color Yellow Urine Appearance Clear Urine pH 5.0 Ur Specific [place] 1.015 Urine Protein 30 Urine Glucose (UA) Negative Urine Ketones Trace Urine Blood Trace-intact H Urine Nitrite Negative Urine Bilirubin Negative Urine Urobilinogen 0.2 Ur Leukocyte Esterase Negative Urine RBC 0-1 Urine WBC 0 Ur Epithelial Cells 1-3 Urine Bacteria 0 EXAM DESCRIPTION: CTA Abdomen (accession [id number]), CTA Pelvis (accession [id number]), CTA Chest (accession [id number]) CLINICAL HISTORY: 55 years Male, epigastric and mid abdominal pain, h/o pancreatiti TECHNIQUE: This exam was performed according to our departmental dose-optimization program, which includes automated exposure control, adjustment of the mA and/or kV according to patient size and/or use of iterative reconstruction technique. This examination was performed according to a CT angiographic (CTA) protocol with 3D post- processing. This involves 3D reconstructions, MIPS, volume rendered images and/or shaded surface rendering. COMPARISON: December 10, 2020 FINDINGS: The thyroid gland is unremarkable. No axillary adenopathy. Atherosclerotic plaque in the aortic arch. Coronary artery calcifications. No pericardial effusion. No mediastinal adenopathy. Suboptimal contrast bolus timing for evaluation of the pulmonary arteries. No pneumothorax. No pleural effusion. Scattered atelectasis and volume loss. No focal consolidation. No suspicious pulmonary nodule. The liver, gallbladder, portal vein, spleen and adrenal glands are unremarkable. Bilateral renal vascular calcifications. Symmetric renal parenchymal enhancement. No hydronephrosis. No urolithiasis. Unremarkable bladder. Acute uncomplicated pancreatitis. Surrounding peripancreatic fluid and edema. No parenchymal necrosis. No drainable fluid collection. Ventral abdominal wall hernia containing nonobstructed small bowel. The hernia sac measures 16.2 x 6.6 cm. No evidence of bowel obstruction or focal inflammatory change. No adenopathy. No focal fluid collection. No free air. Normal caliber abdominal aorta. Diffuse atherosclerotic disease. No acute or suspicious osseous abnormality. Scattered degenerative changes present. IMPRESSION: 1. Acute uncomplicated pancreatitis. 2. Ventral abdominal wall hernia containing nonobstructed bowel. 3. No evidence of acute process in the chest. Electronically signed by: Hoang Lara MD 12/13/2020 12:18 PM [employer] Vital Signs - 24 hr 12/13/20 10:27 Temperature 98.2 F Pulse Rate [ 85 Right Brachial] Respiratory 20 Rate Blood Pressure 159/91 [Right Arm] O2 Sat by Pulse 97 Oximetry Departure - Departure Clinical Impression: Acute hyponatremia, Alcohol dependence, daily use Acute pancreatitis Qualifiers: Pancreatitis type: alcohol induced Acute pancreatitis complication: unspecified Qualified Code(s): K85.20 - Alcohol induced acute pancreatitis without necrosis or infection Time of Disposition: 12:20 Disposition: Admit Patient Condition: Good Home Medications: Ambulatory Orders Lisinopril 20 mg PO BID 01/03/19 Allopurinol 300 mg PO DAILY #30 tab 02/15/19 Metformin HCl [Metformin Hydrochloride] 500 mg PO BID #60 tab 01/06/19 Amlodipine Besylate 5 mg PO DAILY 12/13/20 Ascorbic Acid [Vitamin C] 1,000 mg PO DAILY 12/13/20 Ciprofloxacin HCl [Cipro] 500 mg PO BID 12/13/20 Gabapentin 300 mg PO TID 12/13/20 Multiple Vitamin [Multivitamin Adult] 1 tab PO DAILY 12/13/20 Pantoprazole Sodium [Protonix] 40 mg PO DAILY 12/13/20 Probiotic Product [Probiotic] 1 tab PO DAILY 12/13/20 Sulfamethoxazole-Trimethoprim [Bactrim Ds 800-160 mg] 1 tab PO BID 12/13/20 Decision To Admit - Decistion To Admit Decision to Admit Reason: Admit from ER Decision to Admit Date: 12/13/20 Decision to Admit Time: 12:20
--- NOTE | 2020-12-13 12:20 | CT ---
EXAM DESCRIPTION: CTA Abdomen (accession [id number]), CTA Pelvis (accession [id number]), CTA Chest (accession [id number]) CLINICAL HISTORY: 55 years Male, epigastric and mid abdominal pain, h/o pancreatiti TECHNIQUE: This exam was performed according to our departmental dose-optimization program, which includes automated exposure control, adjustment of the mA and/or kV according to patient size and/or use of iterative reconstruction technique. This examination was performed according to a CT angiographic (CTA) protocol with 3D post-processing. This involves 3D reconstructions, MIPS, volume rendered images and/or shaded surface rendering. COMPARISON: December 10, 2020 FINDINGS: The thyroid gland is unremarkable. No axillary adenopathy. Atherosclerotic plaque in the aortic arch. Coronary artery calcifications. No pericardial effusion. No mediastinal adenopathy. Suboptimal contrast bolus timing for evaluation of the pulmonary arteries. No pneumothorax. No pleural effusion. Scattered atelectasis and volume loss. No focal consolidation. No suspicious pulmonary nodule. The liver, gallbladder, portal vein, spleen and adrenal glands are unremarkable. Bilateral renal vascular calcifications. Symmetric renal parenchymal enhancement. No hydronephrosis. No urolithiasis. Unremarkable bladder. Acute uncomplicated pancreatitis. Surrounding peripancreatic fluid and edema. No parenchymal necrosis. No drainable fluid collection. Ventral abdominal wall hernia containing nonobstructed small bowel. The hernia sac measures 16.2 x 6.6 cm. No evidence of bowel obstruction or focal inflammatory change. No adenopathy. No focal fluid collection. No free air. Normal caliber abdominal aorta. Diffuse atherosclerotic disease. No acute or suspicious osseous abnormality. Scattered degenerative changes present. IMPRESSION: 1. Acute uncomplicated pancreatitis. 2. Ventral abdominal wall hernia containing nonobstructed bowel. 3. No evidence of acute process in the chest. Electronically signed by: Hoang Lara MD 12/13/2020 12:18 PM [employer]
--- NOTE | 2020-12-13 12:20 | CT ---
EXAM DESCRIPTION: CTA Abdomen (accession [id number]), CTA Pelvis (accession [id number]), CTA Chest (accession [id number]) CLINICAL HISTORY: 55 years Male, epigastric and mid abdominal pain, h/o pancreatiti TECHNIQUE: This exam was performed according to our departmental dose-optimization program, which includes automated exposure control, adjustment of the mA and/or kV according to patient size and/or use of iterative reconstruction technique. This examination was performed according to a CT angiographic (CTA) protocol with 3D post-processing. This involves 3D reconstructions, MIPS, volume rendered images and/or shaded surface rendering. COMPARISON: December 10, 2020 FINDINGS: The thyroid gland is unremarkable. No axillary adenopathy. Atherosclerotic plaque in the aortic arch. Coronary artery calcifications. No pericardial effusion. No mediastinal adenopathy. Suboptimal contrast bolus timing for evaluation of the pulmonary arteries. No pneumothorax. No pleural effusion. Scattered atelectasis and volume loss. No focal consolidation. No suspicious pulmonary nodule. The liver, gallbladder, portal vein, spleen and adrenal glands are unremarkable. Bilateral renal vascular calcifications. Symmetric renal parenchymal enhancement. No hydronephrosis. No urolithiasis. Unremarkable bladder. Acute uncomplicated pancreatitis. Surrounding peripancreatic fluid and edema. No parenchymal necrosis. No drainable fluid collection. Ventral abdominal wall hernia containing nonobstructed small bowel. The hernia sac measures 16.2 x 6.6 cm. No evidence of bowel obstruction or focal inflammatory change. No adenopathy. No focal fluid collection. No free air. Normal caliber abdominal aorta. Diffuse atherosclerotic disease. No acute or suspicious osseous abnormality. Scattered degenerative changes present. IMPRESSION: 1. Acute uncomplicated pancreatitis. 2. Ventral abdominal wall hernia containing nonobstructed bowel. 3. No evidence of acute process in the chest. Electronically signed by: Hoang Lara MD 12/13/2020 12:18 PM [employer] PHOTOGR[employer]HER
--- NOTE | 2020-12-13 12:20 | CT ---
EXAM DESCRIPTION: CTA Abdomen (accession [id number]), CTA Pelvis (accession [id number]), CTA Chest (accession [id number]) CLINICAL HISTORY: 55 years Male, epigastric and mid abdominal pain, h/o pancreatiti TECHNIQUE: This exam was performed according to our departmental dose-optimization program, which includes automated exposure control, adjustment of the mA and/or kV according to patient size and/or use of iterative reconstruction technique. This examination was performed according to a CT angiographic (CTA) protocol with 3D post-processing. This involves 3D reconstructions, MIPS, volume rendered images and/or shaded surface rendering. COMPARISON: December 10, 2020 FINDINGS: The thyroid gland is unremarkable. No axillary adenopathy. Atherosclerotic plaque in the aortic arch. Coronary artery calcifications. No pericardial effusion. No mediastinal adenopathy. Suboptimal contrast bolus timing for evaluation of the pulmonary arteries. No pneumothorax. No pleural effusion. Scattered atelectasis and volume loss. No focal consolidation. No suspicious pulmonary nodule. The liver, gallbladder, portal vein, spleen and adrenal glands are unremarkable. Bilateral renal vascular calcifications. Symmetric renal parenchymal enhancement. No hydronephrosis. No urolithiasis. Unremarkable bladder. Acute uncomplicated pancreatitis. Surrounding peripancreatic fluid and edema. No parenchymal necrosis. No drainable fluid collection. Ventral abdominal wall hernia containing nonobstructed small bowel. The hernia sac measures 16.2 x 6.6 cm. No evidence of bowel obstruction or focal inflammatory change. No adenopathy. No focal fluid collection. No free air. Normal caliber abdominal aorta. Diffuse atherosclerotic disease. No acute or suspicious osseous abnormality. Scattered degenerative changes present. IMPRESSION: 1. Acute uncomplicated pancreatitis. 2. Ventral abdominal wall hernia containing nonobstructed bowel. 3. No evidence of acute process in the chest. Electronically signed by: Hoang Lara MD 12/13/2020 12:18 PM [employer]
[2020-12-13] MEDS ORDERED: SODIUM CHLORIDE 0.9% 1000ML 1,000 ML IVS ONE (12:21)
[2020-12-13] MEDS: chlordiazePOXIDE HCL 25 MG CAP PO SCH ×2 (12:45→23:51)
--- NOTE | 2020-12-13 12:45 | HP ---
SUPERVISING PHYSICIAN: Aniket Fernandez M.D. CHIEF COMPLAINT: Left sided abdominal pain. HISTORY OF PRESENT ILLNESS: Mr. Stark is a 55 year-old male patient who has a positive history of hypertension, diabetes, chronic tobacco abuse and chronic alcohol abuse. He reported to the Emergency Room today complaining of acute onset of epigastric abdominal pain that was radiating to his back. He was having associated nausea but non-bloody emesis at time of initial presentation. He denied any recent sick exposures. No recent unexplained travel or exposure to COVID. He has had pancreatitis in the past due to alcohol usage. He reports that he stopped drinking hard liquor and only now drinks about 8 beers a day. His initial laboratory studies in the Emergency Room showed he had a white count of 7,000 without a left shift. His lipase was 497. Sodium was down to 121 with a serum osmolality of 241. CTA of his abdomen and chest per radiology interpretation showed acute uncomplicated pancreatitis and no evidence of an acute process within the chest. He was started on fluids, given pain management in the Emergency Room, and is now going to be admitted for treatment of acute pancreatitis. He was admitted in stable condition. PAST MEDICAL HISTORY: 1. Hypertension. 2. Morbid obesity. 3. Gout. 4. Large umbilical hernia again seen on CT without any complications. 5. Type 2 diabetes mellitus on oral therapy. 6. Chronic alcohol abuse. 7. Several episodes of pancreatitis. 8. Peripheral neuropathy due to complications from diabetes. PAST SURGICAL HISTORY: 1. Appendectomy. 2. Hernia repair with double hernia. HOME MEDICATIONS: 1. Probiotic 1 daily. 2. Vitamin C 1,000 mg daily. 3. Protonix 40 mg daily. 4. Metformin 500 mg b.i.d. 5. Lisinopril 20 mg b.i.d. 6. Gabapentin 300 mg t.i.d. 7. Amlodipine 5 mg daily. 8. Allopurinol 300 mg daily. ALLERGIES: NO KNOWN DRUG ALLERGIES. FAMILY HISTORY: Positive for hypertension in his father as well as deep venous thrombosis. Has a maternal grandfather who had emphysema. Mother had type 2 diabetes. SOCIAL HISTORY: The patient is unemployed and disabled. He is by common law. Lives in [place], [place]. He is a current smoker anywhere from 1 and 1/2 packs a day. He drinks alcohol on a regular basis, typically up to 8 beers. Denies any hard alcohol usage, any spirits other than beer. He denies any recent binges. No illicit drug usage recently, but has at some point in the past tried cocaine, LSD and marijuana. REVIEW OF SYSTEMS: CONSTITUTIONAL: Denies any chills or fever. Does have some general malaise. HEENT: Denies any nasal congestion, sore throat, ear aches, headaches, vision changes. RESPIRATORY: Has a chronic cough. Denies any shortness of breath, palpitations or any wheezing. CARDIOVASCULAR: Denies any chest pains, palpitations or syncopal episodes. GASTROINTESTINAL: As noted in History of Present Illness, left sided abdominal pain with nausea and vomiting. Denies any constipation or diarrhea. MUSCULOSKELETAL: Chronic back pain. Denies any arthralgias or joint swelling. SKIN: Denies any unexplained lesions, moles or skin changes. NEUROLOGIC: Denies any headaches, numbness, paresthesias, seizures, ataxia, hallucinations, audible or visual. HEMATOLOGIC: Denies any unexplained bleeding, bruising or transfusion reactions. PHYSICAL EXAMINATION: VITAL SIGNS: Temperature 98.5, pulse 80, blood pressure 155/85, respirations 17, satting 95% on room air. GENERAL: The patient looks to be resting comfortably. He is not in any distress at time of exam. HEENT: Tympanic membranes clear bilaterally. Oropharynx is pink, moist without any lesions. NECK: Supple, nontender with full range of motion. No jugular venous distention. CHEST: Lung sounds were notably clear without any obvious rhonchi, wheezing or rales. HEART: Regular rate and rhythm. He does have some 1+ pitting edema in bilateral extremities which is symmetrical and appears to be chronic. ABDOMEN: Obese, soft, with some tenderness to palpation over the epigastric region. No rebound and no guarding. No peritoneal signs. There is a periumbilical hernia that is non-tender on palpation. No signs of incarceration or strangulation. BACK: Exam without any CVA or vertebral tenderness. RECTAL: Exam is deferred. EXTREMITIES: Again, no clubbing or cyanosis, just 1+ pitting edema bilaterally which is chronic. NEUROLOGIC: He is alert and oriented times three. Cranial nerves II-XII are grossly intact. SKIN: Warm, pink and dry. LABORATORY: White count 7,000, hemoglobin 13, hematocrit 38.0, platelet count 188,000. RBC indices indicate a microcytosis. Differential does show to be without a left shift currently. Chemistry showed sodium 121, potassium 5.6, carbon dioxide 18, anion gap was normal. BUN 12, creatinine 1.24, glucose 103, serum osmolality 244, lactic acid was normal at 0.8. Liver functions were all within normal limits. Troponin less than 0.02. Lipase 497. Urinalysis just showed trace intact blood. RADIOLOGY: CT of the thoracic and pelvis showed acute uncomplicated pancreatitis. There is a ventral abdominal wall hernia containing nonobstructive bowel. There is no evidence of acute process within the chest. EKG 12-lead shows normal sinus rhythm at 83 [id number] with anterior fascicular block. No ST elevations or depressions are noted. No previous EKG available for review. ASSESSMENT: 1. Alcohol-induced acute pancreatitis. 2. Acute hyponatremia secondary to #1 in a patient known to be a beer drinker. 3. Diabetes mellitus type 2 on oral therapy. 4. Hyperkalemia, mild, now at baseline levels. 5. Chronic tobacco abuse in a smoker. 6. Morbid obesity. 7. Hypertension. 8. History of gout. 9. History of large umbilical hernia with no CT evidence of complications. 10. Peripheral neuropathy secondary to uncontrolled diabetes. 11. Macrocytic/hyperchromic anemia, likely pernicious from chronic alcohol abuse. 12. Chronic diabetic ulcer to the plantar aspect of the left foot currently under care by wound management in [place], [place] and on antibiotic therapy. PLAN: Mr. Stark is going to be admitted for treatment of hyponatremia and associated alcohol-induced pancreatitis. He will be NPO with fluid management initially with a multivitamin infusion pack, banana bag with thiamine. Will follow this up with a repeat CMP and adjust fluids accordingly. He will be provided with pain management as needed with morphine, Zofran for any nausea or vomiting. I have already started him on Librium for the first 24 hours. Will treat fairly aggressively concerning the kidneys at higher risk for developing acute alcohol withdrawals. At this point there are no signs or symptoms. Anticipate his length of stay to be at least 2 to 3 days. I have also ordered a surgical consultation with Dr. Hutchinson. Until we can transition back to outpatient management will continue to monitor and treat as needed. #[id number] [facility]
[2020-12-13] MEDS ORDERED: ONDANSETRON INJ 4 MG/2 ML VIAL IV PRN (13:31)
[2020-12-13] MEDS ORDERED: GLUCAGON INJ 1 MG VIAL SUBCU PRN (13:31)
[2020-12-13] MEDS ORDERED: ACETAMINOPHEN 325 MG TAB PO PRN (13:31)
[2020-12-13] MEDS ORDERED: DEXTROSE 50% 25 GM/50 ML SYG IV PRN (13:31)
[2020-12-13] MEDS ORDERED: SODIUM CHLORIDE 0.9% (FLUSH) 10 ML SYG IV PRN (13:31)
[2020-12-13] MEDS ORDERED: IV SET AND CAP CHANGE INJ INJ SCH (14:00)
[2020-12-13] MEDS ORDERED: PANTOPRAZOLE SODIUM IV 40 MG VIAL IV SCH (14:00)
[2020-12-13] MEDS ORDERED: THIAMINE HCL INJ 100 MG/ML VIAL ONE (14:08)
[2020-12-13] MEDS ORDERED: SODIUM CHLORIDE 0.9% 1000ML 1,000 ML ONE ×2 (14:09→23:40)
[2020-12-13] MEDS ORDERED: MULTIPLE VITAMIN 10 ML VIAL ONE (14:09)
[2020-12-13] MEDS: MULTIPLE VITAMIN INJ 10 ML, THIAMINE HCL INJ 100 MG in SODIUM CHLORIDE 0.9% 1000ML 1,00... IVS SCH (14:10)
[2020-12-13] MEDS: MORPHINE SULFATE INJ 10 MG/ML VIAL IV PRN ×3 (14:30→23:51)
[2020-12-13] MEDS: levoFLOXacin 500MG IV 500 MG in PREMIX BAG 1 BAG IVPB SCH (16:54)
[2020-12-13] MEDS: INSULIN LISPRO 100 UNITS/ML PEN SUBCU SCH (18:44)
[2020-12-13] MEDS ORDERED: NICOTINE PATCH 14 MG TD ONE (19:38)
[2020-12-13] MEDS: NICOTINE PATCH 14 MG TD SCH (19:43)
[2020-12-13] MEDS ORDERED: ENOXAPARIN SODIUM 40 MG/0.4 ML SYG SUBCU ONE (19:56)
[2020-12-13] MEDS: SULFA/TRIMETH INJ 800/160 PER 10 ML in DEXTROSE 5% 250ML 250 ML IVPB SCH (21:00)
[2020-12-13] MEDS: ENOXAPARIN SODIUM 40 MG/0.4 ML SYG SUBCU SCH (21:01)
[2020-12-13] MEDS: SODIUM CHLORIDE 0.9% 1000ML 1,000 ML IVS PRN (23:45)
[2020-12-14] MEDS: INSULIN LISPRO 100 UNITS/ML PEN SUBCU SCH ×5 (00:18→21:20)
[2020-12-14] MEDS: chlordiazePOXIDE HCL 25 MG CAP PO SCH ×2 (05:38→11:39)
[2020-12-14] MEDS ORDERED: SODIUM CHLORIDE 0.9% 1000ML 1,000 ML ONE (07:35)
[2020-12-14] MEDS: SODIUM CHLORIDE 0.9% 1000ML 1,000 ML IVS PRN (07:36)
--- NOTE | 2020-12-14 08:00 | RAD ---
: 1965. Technique: Portable AP upright chest x-ray. Comparison: January 03, 2019. Clinical history: acute pancreatitis. Heart size: Heart size is within normal limits. Lungs: A new small band of linear density at the left base is consistent with subsegmental atelectasis. The right lung remains clear. Pleura: No pleural effusion. No pneumothorax. Mediastinum and maggy: Unremarkable. Skeletal: Unremarkable. Support tubings: None. Impression: 1. New left basilar atelectasis. Electronically signed by: Sanju Ospina MD 12/14/2020 7:59 AM RN OFFICE
[2020-12-14] MEDS ORDERED: NICOTINE PATCH 14 MG TD ONE (09:01)
[2020-12-14] MEDS: SULFA/TRIMETH INJ 800/160 PER 10 ML in DEXTROSE 5% 250ML 250 ML IVPB SCH ×2 (09:14→21:18)
[2020-12-14] MEDS: PANTOPRAZOLE SODIUM IV 40 MG VIAL IV SCH (09:15)
[2020-12-14] MEDS: NICOTINE PATCH 14 MG TD SCH (09:26)
[2020-12-14] MEDS: MORPHINE SULFATE INJ 10 MG/ML VIAL IV PRN (09:32)
[2020-12-14] MEDS ORDERED: amLODIPine BESYLATE 5 MG TAB ONE (12:06)
[2020-12-14] MEDS ORDERED: ALLOPURINOL 300 MG TAB PO ONE (12:06)
[2020-12-14] MEDS ORDERED: LISINOPRIL 10 MG TAB ONE ×2 (12:07→19:00)
[2020-12-14] MEDS: AMLODIPINE BESYLATE 5 MG PO SCH (12:11)
[2020-12-14] MEDS: NON-FORMULARY MEDICATION 1 EA MIS (Lisinopril [Lisinopril] 20 MG) PO SCH ×2 (12:11→21:19)
[2020-12-14] MEDS: ALLOPURINOL 300 MG TAB PO SCH (12:12)
[2020-12-14] MEDS: MULTIPLE VITAMIN INJ 10 ML, THIAMINE HCL INJ 100 MG in SODIUM CHLORIDE 0.9% 1000ML 1,00... IVS SCH (13:07)
[2020-12-14] MEDS: levoFLOXacin 500MG IV 500 MG in PREMIX BAG 1 BAG IVPB SCH (16:24)
--- NOTE | 2020-12-14 17:39 | PN ---
SUPERVISING PHYSICIAN: Aniket Fernandez M.D. DATE: 12/14/20 SUBJECTIVE: The patient notes that his pain is essentially gone. He has not had any episodes or any early signs of any alcohol withdrawals. He did stay on Librium through the night. I discussed with him that we are going to advance his diet and stop the Librium. As soon as he can advance the diet, hopefully will discharge him in the next couple of days. He has had no other complaints. He has been afebrile. Vital signs have been stable. OBJECTIVE: VITAL SIGNS: Temperature 98.2, pulse 88, blood pressure 130/82, respirations 16, satting 95% on room air. LABORATORY STUDIES: White count 6,700, hemoglobin 12.5, hematocrit 33.3, platelet count 187,000. Differential still shows without a left shift. Chemistries are showing lipase is down to 261, amylase is 542. Liver functions all remain within normal limits. Sodium now is up to 130, potassium 4.6, creatinine 0.61, anion gap is 11.6, CO2 is a little elevated up to 20 today. RADIOLOGY: Chest x-ray this morning per radiology interpretation shows some left basilar atelectasis. No actual consolidations. ASSESSMENT: 1. Alcohol-induced acute pancreatitis. 2. Acute hyponatremia secondary to #1 in a patient known to be a beer drinker. 3. Diabetes mellitus type 2 on oral therapy. 4. Hyperkalemia, mild, now at baseline levels. 5. Chronic tobacco abuse in a smoker. 6. Morbid obesity. 7. Hypertension. 8. History of gout. 9. History of large umbilical hernia with no CT evidence of complications. 10. Peripheral neuropathy secondary to uncontrolled diabetes. 11. Macrocytic/hyperchromic anemia, likely pernicious from chronic alcohol abuse. 12. Chronic diabetic ulcer to the plantar aspect of the left foot currently under care wound management in [place], [place] and on antibiotic therapy. PLAN: Sodium is improving. Will continue with IV fluids and normal saline. He has started on some clear liquids. As soon as he can show adequate intake, will certainly stop his maintenance fluids. He does remain on a multivitamin infusion banana bag with thiamine daily for the next [address] Hutchinson has seen the patient in consultation. The plan would be that we can advance his diet over the next 24 hours. If he remains pain free and his labs are showing improvement, certainly will discharge on Wednesday. He does have a wound on the left foot which looks to be without any complications followed by [facility] and he has an appointment on Wednesday to have a walking boot put on. He does remain on IV antibiotics until he can tolerate his oral medications. Until we can transition to outpatient management will continue to monitor and treat as needed. [facility][id number] [facility]
[2020-12-14] MEDS ORDERED: GABAPENTIN 300 MG CAP ONE (19:00)
[2020-12-14] MEDS: GABAPENTIN 300 MG CAP PO SCH (21:19)
[2020-12-14] MEDS: ENOXAPARIN SODIUM 40 MG/0.4 ML SYG SUBCU SCH (21:20)
[2020-12-15] MEDS ORDERED: amLODIPine BESYLATE 5 MG TAB ONE (08:37)
[2020-12-15] MEDS ORDERED: NICOTINE PATCH 14 MG TD ONE (08:37)
[2020-12-15] MEDS ORDERED: CIPROFLOXACIN 250 MG TAB ONE (08:38)
[2020-12-15] MEDS ORDERED: ALLOPURINOL 300 MG TAB PO ONE (08:39)
[2020-12-15] MEDS ORDERED: LISINOPRIL 10 MG TAB ONE (08:40)
[2020-12-15] MEDS ORDERED: GABAPENTIN 300 MG CAP ONE (08:40)
[2020-12-15] MEDS: INSULIN LISPRO 100 UNITS/ML PEN SUBCU SCH ×2 (08:47→12:18)
[2020-12-15] MEDS: ALLOPURINOL 300 MG TAB PO SCH (08:55)
[2020-12-15] MEDS: NICOTINE PATCH 14 MG TD SCH (08:55)
[2020-12-15] MEDS: GABAPENTIN 300 MG CAP PO SCH (08:55)
[2020-12-15] MEDS ORDERED: CIPROFLOXACIN 500 MG TAB (ER DISPENSE) PO SCH (09:00)
[2020-12-15] MEDS ORDERED: SULFA/TRIMETH 800/160 (DS) TAB 1 EA TAB PO SCH (09:00)
[2020-12-15] MEDS: AMLODIPINE BESYLATE 5 MG PO SCH (09:26)
[2020-12-15] MEDS: NON-FORMULARY MEDICATION 1 EA MIS (Lisinopril [Lisinopril] 20 MG) PO SCH (09:28)
[2020-12-15] MEDS: PANTOPRAZOLE SODIUM IV 40 MG VIAL IV SCH (09:28)
[2020-12-15 12:25] VITALS: BP 120/76; TEMP 97.3
[2020-12-15 13:41] VITALS: O2SAT 93
--- NOTE | 2020-12-19 11:38 | DS ---
SUPERVISING PHYSICIAN: Aniket Fernandez MD ADMISSION DIAGNOSIS: 1. Alcohol-induced acute pancreatitis. 2. Acute hyponatremia secondary to #1 in a patient known to be a beer drinker. 3. Diabetes mellitus type 2 on oral therapy. 4. Hyperkalemia, mild, now at baseline levels. 5. Chronic tobacco abuse in a smoker. 6. Morbid obesity. 7. Hypertension. 8. History of gout. 9. History of large umbilical hernia with no CT evidence of complications. 10. Peripheral neuropathy secondary to uncontrolled diabetes. 11. Macrocytic/hyperchromic anemia, likely pernicious from chronic alcohol abuse. 12. Chronic diabetic ulcer to the plantar aspect of the left foot currently under care by wound management in [place], [place] and on antibiotic therapy. DISCHARGE DIAGNOSIS: 1. Alcohol-induced acute pancreatitis, resolved. 2. Acute hyponatremia secondary to #1 in a patient known to be a beer drinker, stable. 3. Diabetes mellitus type 2, on oral therapy. 4. Hyperkalemia, mild, now at baseline levels. 5. Chronic tobacco abuse in a smoker. 6. Morbid obesity. 7. Hypertension. 8. History of gout. 9. History of large umbilical hernia with no CT evidence of complications. 10. Peripheral neuropathy secondary to uncontrolled diabetes. 11. Macrocytic/hyperchromic anemia, likely pernicious from chronic alcohol abuse. 12. Chronic diabetic ulcer to the plantar aspect of the left foot currently under care wound management in [place], [place] and on antibiotic therapy. REASON FOR HOSPITALIZATION: Mr. Stark is a 55 year-old male patient who has a positive history of hypertension, diabetes, chronic tobacco abuse and chronic alcohol abuse. He reported to the Emergency Room today complaining of acute onset of epigastric abdominal pain that was radiating to his back. He was having associated nausea but non-bloody emesis at time of initial presentation. He denied any recent sick exposures. No recent unexplained travel or exposure to COVID. He has had pancreatitis in the past due to alcohol usage. He reports that he stopped drinking hard liquor and only now drinks about 8 beers a day. His initial laboratory studies in the Emergency Room showed he had a white count of 7,000 without a left shift. His lipase was 497. Sodium was down to 121 with a serum osmolality of 241. CTA of his abdomen and chest per radiology interpretation showed acute uncomplicated pancreatitis and no evidence of an acute process within the chest. He was started on fluids, given pain management in the Emergency Room, and is now going to be admitted for treatment of acute pancreatitis. He was admitted in stable condition. LABORATORY: White count on discharge was 6,700, hemoglobin 12,.5 hematocrit 36.3, platelet count 187,000. Differential without a left shift. Chemistries on discharge showed sodium 130, potassium .46, BUN less than 6, creatinine 0.7. Blood sugars ranged between 82 and 95. Serum osmolality at discharge was 257. Amylase 359, lipase down to 197. Urinalysis showed a trace of blood, otherwise unremarkable. MICROBIOLOGY: No specimens were submitted. RADIOLOGY: Abdominal CTA and chest/thoracic CTA as well as pelvic CTA were done. Per radiologic interpretation of those showed acute uncomplicated pancreatitis. There was an abdominal hernia containing nonobstructed bowel and no evidence of acute process was seen in the chest. 12-lead EKG showed normal sinus rhythm tat [address] or T-wave changes to indicate acute ischemia. There was note of a left anteriora fascicular block which was unchanged from previous EKGs. HOSPITAL COURSE: Mr. Stark was admitted for acute pancreatitis secondary to chronic alcoholism and acute intoxication prior to hospitalization although he was intoxicated on admission. He did have some abdominal pain on admission and was started on pain management as well as fluids and kept NPO. Given the fact that he had a significant history of alcoholism, he was also started on Librium the first 12 hours in the hospital. He did show good resolution of symptoms and was no longer having any pain. He had no signs of any acute alcohol withdrawal. His blood pressures were stable. Labs were stabilizing. He did have a diabetic ulcer to the bottom of his foot as history of present illness, but was healing well, was chronic and under the care of wound management. Wound management was continued as prior to hospitalization and was continued on IV antibiotics as per his antibiotic regimen. Once he was able to tolerate a diet, he was started on a diet. He tolerated advancement well. He was ambulating without any pain, no abdominal pain, no nausea or vomiting, no signs of withdrawal and was felt stable enough to continue with outpatient management. Therefore, he was discharged home. PLAN: Mr. Stark was discharged on 12/15/[address] Estrada in 7 days or sooner. He was again encouraged to stop drinking and stop smoking. He was given instructions to return to the Emergency Room should he have any concerning symptoms. He had a followup appointment with wound management in [place] for further management of his wound to his foot. He was to resume usual diet as tolerated and increase activity as tolerated. He was again encouraged to stop drinking. No medications were prescribed on discharge. All other medications prior to hospitalization were continued. DISPOSITION: The patient was discharged home. CONDITION ON DISCHARGE: Stable and improving. #[id number] [facility]
== END 2020-12-15 14:20 | disposition home or self-care (01) | DRG 439 ==
LOC: ER 10:16 → OBSVTOIN 12:42 → MS 12:42
PROVIDERS: ADMIT Nurse Practitioner Family; ATTEND Family Medicine
DX: K85.20 Alcohol induced acute pancreatitis without necrosis or infection (principal); E87.1 Hypo-osmolality and hyponatremia; L97.829 Non-pressure chronic ulcer of other part of left lower leg with unspecified severity; F10.20 Alcohol dependence, uncomplicated; I10 Essential (primary) hypertension; M10.9 Gout, unspecified; E11.9 Type 2 diabetes mellitus without complications; E11.621 Type 2 diabetes mellitus with foot ulcer; E11.65 Type 2 diabetes mellitus with hyperglycemia; E11.42 Type 2 diabetes mellitus with diabetic polyneuropathy; E66.01 Morbid (severe) obesity due to excess calories; Z56.0 Unemployment, unspecified; F17.210 Nicotine dependence, cigarettes, uncomplicated; Z79.84 Long term (current) use of oral hypoglycemic drugs

== ENCOUNTER 2020-12-19 22:42 | Inpatient (IN) | payer BC, OTHER ==
--- NOTE | 2020-12-19 22:58 | ED.PDOC ---
History of Present Illness - General Time Seen by Provider: 12/19/20 22:58 Source: patient Exam Limitations: no limitations Additional Information: Patient admitted to [facility] December 13 for acute pancreatitis. Patient states his last drink of alcohol was just prior to his last admission. - History of Present Illness Initial Comments: Patient complains of gradual onset lower abdominal pain yesterday. Since then the pain has become more severe to the point that it is a very intense pain at present. Patient denied any vomiting till Arrival in the emergency department. Since then he has been vomiting uncontrollably. There is been no diarrhea. No fever or chills. No known exposure to COVID-19. Patient underwent repair of a ventral hernia in [place] [address] Haider at [place]. Since May 2020 the hernia which was repaired Has become increasingly larger.The pain at present is located in the region of the hernia in the lower abdomen. Timing/Duration: 24 hours Severity: severe Improving Factors: nothing Worsening Factors: nothing Associated Symptoms: nausea/vomiting Allergies/Adverse Reactions: Allergies NO KNOWN ALLERGY Allergy (Verified 01/03/19 16:10) Home Medications: Ambulatory Orders Lisinopril 20 mg PO BID 01/03/19 Allopurinol 300 mg PO DAILY #30 tab 01/06/19 Metformin HCl [Metformin Hydrochloride] 500 mg PO BID #60 tab 01/06/19 Amlodipine Besylate 5 mg PO DAILY 12/13/20 Ascorbic Acid [Vitamin C] 1,000 mg PO DAILY 12/13/20 Ciprofloxacin HCl [Cipro] 500 mg PO BID 12/13/20 Gabapentin 300 mg PO TID 12/13/20 Multiple Vitamin [Multivitamin Adult] 1 tab PO DAILY 12/13/20 Pantoprazole Sodium [Protonix] 40 mg PO DAILY 12/13/20 Probiotic Product [Probiotic] 1 tab PO DAILY 12/13/20 Sulfamethoxazole-Trimethoprim [Bactrim Ds 800-160 mg] 1 tab PO BID 12/13/20 Review of Systems - Review of Systems Constitutional: States: no symptoms reported EENTM: States: no symptoms reported Respiratory: States: no symptoms reported Cardiology: States: no symptoms reported Gastrointestinal/Abdominal: States: see HPI Genitourinary: States: no symptoms reported Musculoskeletal: States: no symptoms reported Skin: States: no symptoms reported Neurological: States: no symptoms reported Endocrine: States: no symptoms reported Hematologic/Lymphatic: States: no symptoms reported Past Medical History (General) - Patient Medical History Hx Seizures: Yes Hx Stroke: No Hx Asthma: No Hx of COPD: No Hx Congestive Heart Failure: No Hx Pacemaker: No Hx Hypertension: Yes Hx Diabetes: Yes Hx Gastroesophageal Reflux: Yes Hx MRSA: No - Vaccination History Hx Influenza Vaccination: Yes Hx Pneumococcal Vaccination: No - Social History Hx Tobacco Use: Yes Hx Alcohol Use: Yes - 5-6 daily mostly beer Hx Substance Use: No Hx Physical Abuse: No Hx Emotional Abuse: No Family Medical History - Family History Father Family History: Unknown Living Status: Unknown Hx Cardiac Disease: Yes - dad Hx Family;Other: MOM -liver cirrhosis Physical Exam - Physical Exam General Appearance: Alert, Obvious distress, Other - Vomiting repeatedly Eye Exam: bilateral normal Ears, Nose, Throat: hearing grossly normal, other - Moist mucous membranes Neck: non-tender, full range of motion, supple Respiratory: chest non-tender, normal breath sounds Cardiovascular/Chest: regular rate, rhythm Gastrointestinal/Abdominal: tenderness - Mild abdominal distention with increased bowel sounds. There is a 20 cm hernia in the lower abdomen just left of midline. The hernia is very tender to palpation and is nonreducible. The remainder the abdomen is nontender., other Back Exam: normal inspection, no CVA tenderness Extremity: normal range of motion, no pedal edema, no calf tenderness Neurologic: line locator II-XII nml as tested, no motor/sensory deficits, alert, oriented x 3 Skin Exam: normal color Lymphatic: no adenopathy Progress - Progress Progress: 12/19/20 23:20 IV normal saline 500 mL infusion. Zofran 4 mg, Phenergan 12.5 mg and morphine 4 mg IV. 12/20/20 01:10 Somnolent but arousable with verbal.Abdominal pain and vomiting have subsided with medications. 12/20/20 01:43 Discussed with nurse practitioner Christin Mccullough, Hospitalist on-call for [facility]: Patient will be admitted to the floor for further treatment of pain and vomiting. Medical decision makin-year-old male with a history of alcohol abuse with a questionable history of recentAbstinence with 2-day history of abdominal pain and intractable vomiting onset within the last 12 hours. The patient has a very large ventral hernia but the CT exam is not suggestive of a significant bowel obstruction but rather an ileus or possible early small bowel obstruction. Patient is afebrile with a normal white count and minimal abnormalities on his chemistry Studies. He appears to be suitable for a floor admission and will not require ICU care. - Results/Orders Results/Orders: Electrocardiogram 93/min, sinus rhythm With left anterior fascicular block, no acute STT changes. -Nasopharyngeal swab for COVID-19 negative. 12/19/20 23:10 URINALYSIS Stat 12/19/20 23:58 CT [Abdomen w/Contrast] [CT] Stat 12/19/20 23:59 Hold Metformin x 48Hrs [id number] EKG .ONCE 12/20/20 00:04 Abdomen/Pelvis w/Contrast [CT] Stat 12/20/20 00:05 Hold Metformin x 48Hrs [id number] Laboratory Results - last 24 hr 12/19/20 12/19/20 23:25 23:25 WBC 5.8 RBC 3.58 L Hgb 12.1 L Hct 35.7 L MCV 99.8 H MCH 33.9 H MCHC 33.9 RDW 14.4 Plt Count 234 MPV 6.5 L Absolute Neuts (auto) 3.80 Absolute Lymphs (auto) 1.10 Absolute Monos (auto) 0.40 Absolute Eos (auto) 0.40 Absolute Basos (auto) 0.10 Neutrophils % 65.0 Lymphocytes % 19.3 L Monocytes % 7.4 Eosinophils % 7.3 H Basophils % 1.0 Sodium 133 L Potassium 4.6 Chloride 104 Carbon Dioxide 21 Anion Gap 12.6 BUN 12 Creatinine 1.34 H BUN/Creatinine Ratio 9.0 L Random Glucose 141 H Serum Osmolality 268.5 L Calcium 9.0 Total Bilirubin 0.6 AST 26 ALT 25 Alkaline Phosphatase 60 Serum Total Protein 7.2 Albumin 3.8 Globulin 3.4 Albumin/Globulin Ratio 1.1 Vital Signs - 24 hr 12/19/20 12/19/20 22:45 23:42 Temperature 98.0 F Pulse Rate [ 87 86 pulse ox] Respiratory 18 18 Rate Blood Pressure 137/85 128/76 [Left Arm] O2 Sat by Pulse 93 L 95 Oximetry EXAM: CT Abdomen and Pelvis COMPARISON: CT abdomen and pelvis December 13, 2020 INDICATION: MAIN abd pain to hernia protuding from abd TECHNIQUE: CT of the abdomen and pelvis was acquired with IV contrast material. Coronal and sagittal reconstructions were obtained. Automated exposure control was utilized on this examination as a dose lowering technique. FINDINGS: Lung bases: Clear. Liver: Normal. Gallbladder and biliary: Normal gallbladder. Unremarkable biliary tree. Pancreas: Mild peripancreatic fat stranding is present. Peripancreatic lymph nodes are increased in number and measure up to 1.6 cm short axis (series 2 image 36). A cystic lesion of the pancreatic head measures 1.3 cm on series 2 image 42 and a small cystic lesion of the pancreatic body measures 0.7 cm on image 42. Spleen: A few small calcified granulomas are noted. Adrenal glands: Normal adrenal glands. Kidneys: Mild bilateral nonspecific perinephric stranding is present. Stomach and Small Bowel: The stomach is normal. There are a few mildly dilated loops of small bowel with air-fluid levels in the lower abdomen and within the ventral hernia sac. Urinary bladder: Normal. Prostate/Male Urogenital: Normal. Colon and Appendix: The colon is unremarkable. The appendix is not visualized. Retroperitoneum and lymph nodes: Retroperitoneal and periportal lymph nodes are increased in number and measure up to 1.6 cm short axis. Vascular: Severe calcified multivessel atherosclerosis. Peritoneal cavity: Mild peripancreatic fluid. No intraperitoneal free air. Musculoskeletal and soft tissues: Large ventral her griffin containing multiple loops of small bowel. The fascial defect measures 7.3 cm in the hernia sac measures 17.9 cm. No aggressive bone lesions. No compression fracture. IMPRESSION: 1. Multiple mildly dilated loops of small bowel with air-fluid levels are present. Several loops of bowel are located in the large ventral hernia. Given mild degree of dilatation this favors mild ileus or early partial obstruction. 2. Residual peripancreatic fat stranding and lymph nodes are favored to represent persistent but improving subacute pancreatitis. No evidence of necrosis. Stable small cystic lesions of the pancreatic head and neck which favor small pseudocysts and less likely IPMNs or small cystic neoplasms. 3. Grossly stable retroperitoneal and periportal lymph nodes are favored to be reactive to pancreatitis. This is similar to the appearance on January 03, 2019. 4. Severe atherosclerosis. Electronically signed by: Wilder Casillas MD 12/20/2020 12:55 AM PRODUCTION CLERK Lipase 103 Departure - Departure Clinical Impression: Abdominal pain, Vomiting, Pancreatitis, Ileus Disposition: Admit Patient Condition: Good Referrals: Shravan Estrada MD [Primary Care Provider] - 1-2 Weeks Home Medications: Ambulatory Orders Lisinopril 20 mg PO BID 01/03/19 Allopurinol 300 mg PO DAILY #30 tab 01/06/19 Metformin HCl [Metformin Hydrochloride] 500 mg PO BID #60 tab 01/06/19 Amlodipine Besylate 5 mg PO DAILY 12/13/20 Ascorbic Acid [Vitamin C] 1,000 mg PO DAILY 12/13/20 Ciprofloxacin HCl [Cipro] 500 mg PO BID 12/13/20 Gabapentin 300 mg PO TID 12/13/20 Multiple Vitamin [Multivitamin Adult] 1 tab PO DAILY 12/13/20 Pantoprazole Sodium [Protonix] 40 mg PO DAILY 12/13/20 Probiotic Product [Probiotic] 1 tab PO DAILY 12/13/20 Sulfamethoxazole-Trimethoprim [Bactrim Ds 800-160 mg] 1 tab PO BID 12/13/20 Decision To Admit - Decistion To Admit Decision to Admit Reason: Admit from ER Decision to Admit Date: 12/20/20 Decision to Admit Time: 01:42
[2020-12-19] MEDS ORDERED: SODIUM CHLORIDE 0.9% 1000ML 1,000 ML IVS ONE (23:10)
[2020-12-19] MEDS ORDERED: MORPHINE SULFATE INJ 10 MG/ML VIAL IV ONE (23:11)
[2020-12-19] MEDS ORDERED: ONDANSETRON INJ 4 MG/2 ML VIAL IV ONE (23:11)
[2020-12-19] MEDS ORDERED: PROMETHAZINE HCL INJ 12.5 MG in SODIUM CHLORIDE 0.9% 50ML 50 ML IVPB ONE (23:12)
--- NOTE | 2020-12-20 00:56 | CT ---
EXAM: CT Abdomen and Pelvis COMPARISON: CT abdomen and pelvis December 13, 2020 INDICATION: MAIN abd pain to hernia protuding from abd TECHNIQUE: CT of the abdomen and pelvis was acquired with IV contrast material. Coronal and sagittal reconstructions were obtained. Automated exposure control was utilized on this examination as a dose lowering technique. FINDINGS: Lung bases: Clear. Liver: Normal. Gallbladder and biliary: Normal gallbladder. Unremarkable biliary tree. Pancreas: Mild peripancreatic fat stranding is present. Peripancreatic lymph nodes are increased in number and measure up to 1.6 cm short axis (series 2 image 36). A cystic lesion of the pancreatic head measures 1.3 cm on series 2 image 42 and a small cystic lesion of the pancreatic body measures 0.7 cm on image 42. Spleen: A few small calcified granulomas are noted. Adrenal glands: Normal adrenal glands. Kidneys: Mild bilateral nonspecific perinephric stranding is present. Stomach and Small Bowel: The stomach is normal. There are a few mildly dilated loops of small bowel with air-fluid levels in the lower abdomen and within the ventral hernia sac. Urinary bladder: Normal. Prostate/Male Urogenital: Normal. Colon and Appendix: The colon is unremarkable. The appendix is not visualized. Retroperitoneum and lymph nodes: Retroperitoneal and periportal lymph nodes are increased in number and measure up to 1.6 cm short axis. Vascular: Severe calcified multivessel atherosclerosis. Peritoneal cavity: Mild peripancreatic fluid. No intraperitoneal free air. Musculoskeletal and soft tissues: Large ventral hernia containing multiple loops of small bowel. The fascial defect measures 7.3 cm in the hernia sac measures 17.9 cm. No aggressive bone lesions. No compression fracture. IMPRESSION: 1. Multiple mildly dilated loops of small bowel with air-fluid levels are present. Several loops of bowel are located in the large ventral hernia. Given mild degree of dilatation this favors mild ileus or early partial obstruction. 2. Residual peripancreatic fat stranding and lymph nodes are favored to represent persistent but improving subacute pancreatitis. No evidence of necrosis. Stable small cystic lesions of the pancreatic head and neck which favor small pseudocysts and less likely IPMNs or small cystic neoplasms. 3. Grossly stable retroperitoneal and periportal lymph nodes are favored to be reactive to pancreatitis. This is similar to the appearance on January 03, 2019. 4. Severe atherosclerosis. Electronically signed by: Wilder Casillas MD 12/20/2020 12:55 AM ED EDUCATIONAL AIDE
--- NOTE | 2020-12-20 02:10 | HP ---
SUPERVISING PHYSICIAN: KRYSTAL BUTTS MD CHIEF COMPLAINT: Left-sided abdominal pain. HISTORY OF PRESENT ILLNESS: This is a 55 year-old male patient who presented to the Emergency Room due to a gradual onset of left-sided abdominal pain. He was actually in the hospital last week for alcohol-induced pancreatitis and also has a large ventral hernia. He had this pain that gradually came on over the last day or so. He came to the Emergency Room and prior to his admission, had some nausea but no vomiting. He did vomit quite a bit in the Emergency Room. He also had some pain and was given some morphine, Zofran and Phenergan. He actually had the hernia repaired in [address] Clark in [place]. He did say the hernia had become increasingly larger. In the Emergency Room, he was given fluids and his lipase was 103. His CBC was unremarkable. Sodium was slightly low at 133 with a creatinine of 1.34, his baseline creatinine is about 0.7. I was called for admission to the hospital for pancreatitis. The patient was admitted to the hospital in stable condition. The patient continued to have pain, especially at that hernia site. I spoke with Dr. Dasilva this morning and he felt that the patient had an incarcerated hernia because it was unable to be reduced. He also felt that most likely it would cause a partial bowel obstruction. He spoke with Dr. Hutchinson and the patient was taken to surgery for repair of that hernia. PAST MEDICAL HISTORY: 1. Hypertension. 2. Morbid obesity. 3. Gout. 4. Large ventral hernia. 5. Type 2 diabetes mellitus on oral therapy. 6. Chronic alcohol abuse. 7. Multiple episodes of pancreatitis. 8. Peripheral neuropathy due to complications from diabetes. PAST SURGICAL HISTORY: 1. Appendectomy. 2. Hernia repair in 2019. . HOME MEDICATIONS: Per the EMR and awaiting verification. ALLERGIES: NO KNOWN DRUG ALLERGIES. FAMILY HISTORY: Positive for hypertension, DVT, type 2 diabetes and emphysema. SOCIAL HISTORY: The patient is disabled. He lives in [place], [place]. He smokes about one pack of cigarettes daily. He drinks alcohol on a regular basis, usually beer. He has a distant history of illicit drug use. REVIEW OF SYSTEMS: GENERAL: Negative for fever, fatigue or weight changes. HEENT: Negative for sinus symptoms, ear pain, vision changes, sore throat. RESPIRATORY: Negative for coughing, wheezing, shortness of breath. CARDIOVASCULAR: Negative for chest pains, palpitations or tachycardia. GASTROINTESTINAL: As per History of Present Illness. GENITOURINARY: negative for hematuria, dysuria or polyuria. MUSCULOSKELETAL: Negative for arthralgias. myalgias. SKIN: Negative for lesions or rashes. NEUROLOGIC: Negative for headaches, weakness or seizures. PHYSICAL EXAMINATION: VITAL SIGNS: Temperature 97.4, heart rate 75, blood pressure 130/81, respirations 19, oxygen saturation 92% on 1 liter nasal cannula. GENERAL: The patient is a 55 year-old male patient lying in his hospital bed. He looks to be in moderate pain. . HEENT: Normocephalic and atraumatic. Pupils are equal and reactive. Oropharynx is clear. NECK: Supple. CHEST: Essentially clear to auscultation bilaterally. HEART: Regular rate and rhythm. ABDOMEN: He has tenderness throughout, especially in the large hernia just to the left of the umbilicus. It is very tender to palpation and nonreducible. Bowel sounds are positive. BACK: Exam deferred. EXTREMITIES: No cyanosis, clubbing, or edema. NEUROLOGIC: He is awake, alert and oriented times three. Cranial nerves II-XII are grossly intact as tested. SKIN: Warm, pink and dry. FOLLOWUP LABORATORY: CBC is unremarkable. Sodium 133, potassium 5.1, chloride 104, BUN 10, creatinine 1.09. Liver enzymes within normal limits . Lipase 58. Urinalysis is unremarkable. Covid swab is negative. RADIOLOGY: Abdomen/pelvis CT shows: 1. Multiple mildly dilated loops of small bowel with air-fluid levels present. Several loops of bowel are located in the large ventral hernia. Given mild degree of dilatation. this favors mild ileus or early partial obstruction. 2. Residual peripancreatic fat stranding and lymph nodes are favored to represent persistent but improving subacute pancreatitis. No evidence of necrosis. Stable small cystic lesions of the pancreatic head and neck which favor small pseudocysts, less likely IPMN or small cystic neoplasms. 3. Grossly stable retroperitoneal and periportal lymph nodes are favored to be reactive to pancreatitis. This is similar in appearance to December 2018. 4. Severe atherosclerosis. IMPRESSION: 1. Large painful ventral hernia, nonreducible and most likely incarcerated. Scheduled for surgery per Dr. Steve Dasilva and Dr. Region Hutchinson this morning. 2. Pancreatis most likely alcohol induced. . 3. Partial bowel obstruction secondary to #1. 4. Acute kidney failure. His admitting creatinine is 1.34, his baseline is 0.7. 5. Diabetes mellitus type 2. 6. Chronic tobacco abuse. 7. Hypertension. 8. Gout. 9. Peripheral neuropathy secondary to uncontrolled diabetes. PLAN: The patient has been admitted to the hospital. He will go to surgery this morning and we will follow recommendations per Dr. Dasilva and Dr. Hutchinson. I have ordered lab for in the morning. He will have a PPI for ulcer prophylaxis. Will hold on Lovenox for now. I have also ordered sliding scale insulin per protocol and antibiotics will be per Dr. Hutchinson and Dr. Dasilva. We will follow and treat as needed. #[id number] [facility]
[2020-12-20] MEDS ORDERED: ONDANSETRON INJ 4 MG/2 ML VIAL IV PRN ×2 (02:27→15:07)
[2020-12-20] MEDS ORDERED: SODIUM CHLORIDE 0.9% (FLUSH) 10 ML SYG IV PRN (02:27)
[2020-12-20] MEDS ORDERED: PROMETHAZINE HCL INJ 25 MG in SODIUM CHLORIDE 0.9% 50ML 50 ML IVPB PRN (02:33)
[2020-12-20] MEDS: DEX 5% W/NACL 0.45% 1000ML 1,000 ML IVS PRN ×4 (03:13→23:23)
[2020-12-20] MEDS: MORPHINE SULFATE INJ 10 MG/ML VIAL IV PRN ×5 (03:14→18:30)
[2020-12-20] MEDS: IV SET AND CAP CHANGE INJ INJ SCH (04:16)
[2020-12-20] MEDS: PANTOPRAZOLE SODIUM IV 40 MG VIAL IV SCH (06:34)
[2020-12-20] MEDS: SODIUM CHLORIDE 0.9% (FLUSH) 10 ML SYG IV SCH ×2 (07:36→20:42)
[2020-12-20] MEDS: amLODIPine BESYLATE 5 MG TAB PO SCH (08:42)
[2020-12-20] MEDS: ALLOPURINOL 300 MG TAB PO SCH (08:43)
[2020-12-20] MEDS: GABAPENTIN 300 MG CAP PO SCH ×3 (08:43→20:41)
[2020-12-20] MEDS: LISINOPRIL 10 MG TAB PO SCH ×2 (08:43→20:41)
[2020-12-20] MEDS ORDERED: ePHEDrine SULF 50 MG/ML IV ONE (10:00)
[2020-12-20] MEDS ORDERED: LIDOCAINE 1% 10 ML VIAL INJ ONE (10:00)
[2020-12-20] MEDS ORDERED: DEXAMETHASONE INJ 10 MG/ML VIAL IV ONE (10:00)
[2020-12-20] MEDS ORDERED: SODIUM CHLORIDE 0.9% 50 ML VIAL INJ ONE (10:00)
[2020-12-20] MEDS ORDERED: ONDANSETRON INJ 4 MG/2 ML VIAL IV ONE (10:00)
[2020-12-20] MEDS ORDERED: PROPOFOL 200 MG/20 ML VIAL IV ONE (10:00)
[2020-12-20] MEDS ORDERED: MAGNESIUM SULFATE INJ 1 GM/2 ML VIAL IVPB ONE (10:00)
[2020-12-20] MEDS ORDERED: PHENYLEPHRINE INJ 1ML 10 MG/ML VIAL IV ONE (10:00)
[2020-12-20] MEDS ORDERED: ceFAZolin SODIUM 1 GM VIAL IVPB ONE (10:00)
[2020-12-20] MEDS ORDERED: GLUCAGON INJ 1 MG VIAL SUBCU PRN (13:00)
[2020-12-20] MEDS ORDERED: DEXTROSE 50% 25 GM/50 ML SYG IV PRN (13:00)
[2020-12-20] MEDS ORDERED: LEVALBUTEROL NEBS 1.25 MG/3 ML VIAL NEB ONE ×4 (13:17→15:22)
[2020-12-20] MEDS ORDERED: KETAMINE HCL 100 MG/ML VIAL ONE (13:18)
[2020-12-20] MEDS ORDERED: DEXMEDETOMIDINE HCL 200 MCG/2 ML INJ IV ONE (13:18)
[2020-12-20] MEDS ORDERED: fentaNYL CITRATE INJ 50 MCG/ML 5 ML AMP ONE (13:19)
[2020-12-20] MEDS ORDERED: ROCURONIUM BROMIDE 10 MG/ML VIAL ONE (13:19)
[2020-12-20] MEDS ORDERED: MIDAZOLAM INJ 2 MG/2 ML VIAL ONE (13:19)
--- NOTE | 2020-12-20 14:06 | CONS ---
HISTORY OF PRESENT ILLNESS: The patient is a 55 year-old male who was admitted one week ago for acute pancreatitis which was felt to be alcoholic in nature. He presented to the Emergency Room last night with lower abdominal pain and distention of his hernia. He states it was a different pain than he had the week before. He had no vomiting until he arrived in the Emergency Room and was noted to have vomited uncontrollably. He denied change in his bowel habit, although he says he has trouble having bowel movements with his hernia. His was previously repaired in October [address] Clark in [place]. The patient denied fever, chills, cough. PAST MEDICAL HISTORY: Positive for seizures, hypertension, diabetes, gastroesophageal reflux disease. CURRENT MEDICATIONS: 1. Lisinopril. 2. Allopurinol. 3. Metformin. 4. Amlodipine. 5. Ascorbic acid. 6. Cipro. 7. Gabapentin. 8. Multivitamin. 9. Protonix. 10. Probiotic. 11. Bactrim. ALLERGIES: No known drug allergies. FAMILY HISTORY: Positive for coronary artery disease and his mother had alcoholic cirrhosis. SOCIAL HISTORY: He drinks 5 to 6 beers daily. REVIEW OF SYSTEMS: He denied weight loss, fever chills. He denied urinary symptoms at this time. He has no history of bleeding or lymphadenopathy. PHYSICAL EXAMINATION: VITAL SIGNS: He is afebrile. GENERAL: The patient is awake, alert, and cooperative and in moderate distress. He is normotensive. HEENT: Sclera nonicteric. Mucous membranes are moist. NECK: Without adenopathy. BACK: Without CVA tenderness. CHEST: There are equal breath sounds bilaterally. HEART: Regular rate and rhythm. ABDOMEN: There is a tender mass in the lower abdomen. It is not reducible. The remaining abdomen is non-tender. Bowel sounds are active. RECTAL: Examination is deferred. EXTREMITIES: Without cyanosis, clubbing, or edema. LABORATORY: White count 5,000, hemoglobin 11.8, sodium 1% neutrophils, 216,000 platelets. Chemistries show low potassium of 5.1, sodium 133, creatinine 1.09, liver functions within normal limits. Lipase 103 in the Emergency Room, it is [address] scan reveals the large hernia with no obvious signs of perforation or edema. There are some minimally dilated loops of small bowel proximately. The head of the pancreas does show inflammatory changes with the body of the pancreas appears to be normal. The pancreatic duct is mildly dilated. IMPRESSION: 1 Resolving pancreatitis. 2. Incarcerated recurrent incisional hernia with obstruction. The risks, benefits, and alternatives to surgical repair are discussed with the patient. He agrees. He is a high risk candidate for the repair but we will proceed as noted. #[id number] [facility]
[2020-12-20] MEDS ORDERED: ELECTROLYTE-A 1,000 ML IVS ONE (14:14)
[2020-12-20] MEDS ORDERED: SUGAMMADEX SODIUM 200 MG/2 ML VIAL IV ONE (14:56)
--- NOTE | 2020-12-20 16:31 | OP ---
PREOPERATIVE DIAGNOSIS: 1. Incarcerated recurrent incisional hernia with obstruction. POSTOPERATIVE DIAGNOSIS: 1. Incarcerated recurrent incisional hernia with obstruction. PROCEDURE: 1. Repair incarcerated recurrent incisional hernia with Onlay mesh graft. SURGEON: Steve Dasilva MD MANAGER EMPLOYEE BENEFITS: Papito Hutchinson MD ANESTHESIA: General endotracheal. INDICATION: The patient is a 55 year-old male who was admitted through the Emergency Room early this morning to the hospitalist service with no consultation with surgery. He was admitted with lower abdominal pain involving his hernia and tenderness only of the hernia sac and no other abdominal tenderness and a mildly elevated amylase and a history of pancreatitis a week ago. He was admitted with a diagnosis of pancreatitis despite the finding on the physical examination and the CT scan. When a surgical consultation was obtained it was felt that he needed urgent surgery for a painful incarcerated hernia with obstruction and he was brought to the surgical suite today for that repair after the risks, benefits, and alternatives were discussed with the patient. FINDINGS: The defect was approximately 6 cm in circumference. The previous mesh graft had become displaced on the patient's left side and was free, there were small adhesions from a couple of adhesive bands to the bowel from this mesh but it was not the cause of the problem other than the mesh had become dislodged from one side of the patient's abdomen. The bowel was without strangulation and as noted, there were several small adhesions between the bowel and abdominal wall and mesh. PROCEDURE: After adequate general endotracheal anesthesia was obtained, the patient was prepped and draped in the usual sterile manner in the supine position. The Ancef had been given, a surgical time-out was taken. A midline incision was made over the hernia site on the medial aspect of it. First, the skin was incised with a sharp knife, dissection was then carried down through the skin and the subcutaneous tissue to the hernia sac using electrocautery and blunt dissection. The hernia sac was opened for the length of the hernia sac transversely. At this point, the bowel was identified, dissected free from the small number of adhesions. The different loops were and then it was reduced below the abdominal wall without any difficulty. At this point, the hernia sac was dissected free from the subcuticular tissue using blunt dissection and then electrocautery. When this was done, hemostasis was obtained with electrocautery. At this point, it was decided to close the fascia primarily after the fascia was somewhat cleaned up to obtained clear surfaces so the fascia was then closed with a #1 PDS looped suture. When this was tightened and tied, the subcutaneous was irrigated with saline. Hemostasis was noted to be adequate. Then, 2 pieces of Prolene mesh were sutured in a vertical manner over the defect with 3 cm margins approximately on each side of the wound. It was sutured in place with interrupted #2-0 Proline and Vicryl sutures. When this was done, again the wound was irrigated with saline. There was a large defect so a #15 Estonian round DANIEL drain was introduced through a stab wound on the right side below the incision into the defect and looped. It was then sutured in place with a #3-0 Nylon suture. At this point, the subcu was reapproximated with interrupted #3-0 Vicryl sutures and the skin edges approximated with skin maria elena. The DANIEL drain was placed to close suction drainage. Sterile dressing was applied. The patient was awakened and taken to the Recovery Room in stable condition. Estimated blood loss was less than 100 mL. All sponge and instrument counts were corrected. #[id number] [facility]
[2020-12-20] MEDS: NICOTINE PATCH 14 MG TD SCH (17:30)
[2020-12-20] MEDS: INSULIN LISPRO 100 UNITS/ML PEN SUBCU SCH (18:23)
[2020-12-20] MEDS: LEVALBUTEROL NEBS 1.25 MG/3 ML VIAL NEB SCH (20:20)
[2020-12-21] MEDS: INSULIN LISPRO 100 UNITS/ML PEN SUBCU SCH ×5 (00:10→22:55)
[2020-12-21] MEDS: MORPHINE SULFATE INJ 10 MG/ML VIAL IV PRN ×5 (05:18→21:37)
[2020-12-21] MEDS ORDERED: ceFAZolin SODIUM 1 GM in SODIUM CHL 0.9% 50ML MIN-BAG+ 50 ML IVPB ONE (06:07)
[2020-12-21] MEDS ORDERED: SODIUM CHL 0.9% 50ML MIN-BAG+ 50 ML IVPB ONE (06:08)
[2020-12-21] MEDS ORDERED: ceFAZolin SODIUM 1 GM VIAL ONE (06:08)
[2020-12-21] MEDS: PANTOPRAZOLE SODIUM IV 40 MG VIAL IV SCH (06:09)
[2020-12-21] MEDS: amLODIPine BESYLATE 5 MG TAB PO SCH (07:58)
[2020-12-21] MEDS: ALLOPURINOL 300 MG TAB PO SCH (07:58)
[2020-12-21] MEDS: GABAPENTIN 300 MG CAP PO SCH ×3 (07:58→20:38)
[2020-12-21] MEDS: NICOTINE PATCH 14 MG TD SCH (07:59)
[2020-12-21] MEDS: LISINOPRIL 10 MG TAB PO SCH ×2 (07:59→20:37)
[2020-12-21] MEDS: LEVALBUTEROL NEBS 1.25 MG/3 ML VIAL NEB SCH ×4 (08:45→19:50)
[2020-12-21] MEDS: SODIUM CHLORIDE 0.9% (FLUSH) 10 ML SYG IV SCH ×2 (09:04→20:42)
[2020-12-21] MEDS: REMOVE OLD PATCH TOP SCH (09:04)
[2020-12-21] MEDS ORDERED: FUROSEMIDE 40 MG TAB ONE (09:50)
[2020-12-21] MEDS ORDERED: chlordiazePOXIDE HCL 25 MG CAP PO PRN (14:00)
--- NOTE | 2020-12-21 15:18 | PN ---
SUPERVISING PHYSICIAN: Neptali Nava MD DATE: 12/21/20 SUBJECTIVE: The patient is sitting up in his bed drinking his liquids. He has some pain but his pain medications are controlling it and he feels much better since he has had that surgery. He had no other complaints of shortness of breath, nausea or vomiting. He did say he has not drank in 8 days and he would no longer drink any alcoholic beverages. OBJECTIVE: VITAL SIGNS: Temperature 97.7, heart rate 60, blood pressure 137/83, respiratory rate 18. Oxygen saturation 97% on room air. RESPIRATORY: Essentially clear to auscultation bilaterally. CARDIAC: Regular rate and rhythm. NEURO: He is awake, alert, and oriented x3, LABORATORY: WBC 9.3, hemoglobin 11.3, hematocrit 33.8. He does have a mild left shift on differential. All other labs and films have been reviewed via the EMR. ASSESSMENT: 1. Large painful ventral hernia, nonreducible, that was most likely incarcerated. Hernia repair was dong yesterday by Dr. Steve Dasilva and Dr. Regino Hutchinson, postoperative day #1. 2. Pancreatis, mild, most likely alcohol induced. . 3. Partial bowel obstruction secondary to #1. 4. Acute kidney injury. His admitting creatinine is 1.34, his baseline is 0.7. 5. Diabetes mellitus type 2. 6. Chronic tobacco abuse. 7. Hypertension. 8. Gout. 9. Peripheral neuropathy secondary to uncontrolled diabetes. PLAN: We will continue present supportive care. Operative issues will be per Dr. Dasilva. His home medications have been restarted. I have ordered lab for in the morning. Alcohol cessation was discussed. I will follow and treat as needed. [facility][id number] [facility]
[2020-12-21] MEDS: DEX 5% W/NACL 0.45% 1000ML 1,000 ML IVS PRN ×2 (16:03→23:45)
[2020-12-21] MEDS: metFORMIN HCL 500 MG TAB PO SCH (20:42)
[2020-12-22] MEDS: MORPHINE SULFATE INJ 10 MG/ML VIAL IV PRN ×2 (02:16→18:05)
[2020-12-22] MEDS: DEX 5% W/NACL 0.45% 1000ML 1,000 ML IVS PRN (05:56)
[2020-12-22] MEDS: PANTOPRAZOLE SODIUM IV 40 MG VIAL IV SCH (06:11)
[2020-12-22] MEDS: INSULIN LISPRO 100 UNITS/ML PEN SUBCU SCH ×4 (07:27→21:08)
[2020-12-22] MEDS ORDERED: MAGNESIUM SULFATE PREMIX 2GM 2 GM in PREMIX BAG 1 BAG IVPB ONE (08:14)
[2020-12-22] MEDS: LEVALBUTEROL NEBS 1.25 MG/3 ML VIAL NEB SCH ×2 (08:15→12:00)
[2020-12-22] MEDS ORDERED: KETOROLAC TROMETHAMINE INJ 30 MG/ML VIAL IV ONE (08:18)
--- NOTE | 2020-12-22 08:36 | RAD ---
TECHNIQUE: Chest,1 View Chest radiograph, AP 1 view. HISTORY: MAIN Sob COMPARISON: Chest x-ray December 14, 2020. FINDINGS: Lungs/Pleura: Hypoaerated lungs accentuate the pulmonary markings and cardiac silhouette. Slightly blunted bilateral costophrenic angles. No large consolidation. No pneumothorax. Mediastinum, Torie: Aortic calcifications. Heart: Cardiac silhouette is within normal limits. Bones: No suspicious osseous lesions. Soft Tissues: Unremarkable. Other: None. IMPRESSION: * Possible small bilateral pleural effusions. Electronically signed by: Christ Martins 12/22/2020 8:35 AM [facility]
[2020-12-22] MEDS ORDERED: MAGNESIUM SULFATE PREMIX 2GM 50 ML IVPB ONE (08:39)
[2020-12-22] MEDS: ALLOPURINOL 300 MG TAB PO SCH (08:44)
[2020-12-22] MEDS: metFORMIN HCL 500 MG TAB PO SCH ×2 (08:44→20:11)
[2020-12-22] MEDS: NICOTINE PATCH 14 MG TD SCH (08:44)
[2020-12-22] MEDS: LISINOPRIL 10 MG TAB PO SCH ×2 (08:44→20:12)
[2020-12-22] MEDS: SODIUM CHLORIDE 0.9% (FLUSH) 10 ML SYG IV SCH ×2 (08:45→20:12)
[2020-12-22] MEDS: GABAPENTIN 300 MG CAP PO SCH ×3 (08:45→20:12)
[2020-12-22] MEDS: amLODIPine BESYLATE 5 MG TAB PO SCH (08:45)
[2020-12-22] MEDS: REMOVE OLD PATCH TOP SCH (08:45)
[2020-12-22] MEDS ORDERED: MAGNESIUM HYDROXIDE 30 ML UD PO ONE (11:16)
--- NOTE | 2020-12-22 16:10 | PN ---
SUPERVISING PHYSICIAN: Neptali Nava M.D. DATE: 12/22/20 SUBJECTIVE: The patient is doing well. He had a little bit of pleuritic type chest pain that was reproducible with deep inspiration and cough which did improve with some Toradol. He has had no other complaints. He has actually been tolerating a mechanical soft diet and ambulating. OBJECTIVE: VITAL SIGNS: Temperature 97.9, pulse 85, blood pressure 151/80, respirations 20, satting 95% on 2 liters nasal cannula. GENERAL: The patient looks to be resting comfortably in no acute distress. He is alert. CHEST: Clear to auscultation bilaterally. There is some notable chest wall discomfort on palpation on the left posterior aspect mid thoracic spine which also is worsened with deep inspiration. No obvious rhonchi or rales were noted. HEART: Regular rate and rhythm with no appreciable murmurs, gallops, or rubs. ABDOMEN: Obese but soft with a surgical dressing in place which is clean and dry. NEUROLOGIC: He is alert and oriented times three. LABORATORY: White count 8,900, hemoglobin 11.5, hematocrit 34.2, platelet count 271,000. Differential now shows to be without a left shift. Chemistries are showing normal electrolytes. Creatinine is 0.59, blood sugars range between 100 and 113, magnesium is low at 1.2. Troponin was less than 0.4, BNP was pending. Lipase was normal at 41. MICROBIOLOGY: No new specimens. RADIOLOGY: Chest x-ray this morning per radiology interpretation showed possible small bilateral pleural effusions. ASSESSMENT: 1. Postoperative day #2 for repair of a ventral hernia by Dr. Dasilva and Dr. Hutchinson. 2. History of pancreatis with no signs of acute pancreatitis at this time. 3. Resolved bowel obstruction secondary to #1. 4. Acute onset of the chest pain with no evidence of acute coronary syndrome, likely costochondritis. Continue to monitor. 5. Acute kidney injury, likely prerenal azotemia, now back to baseline levels with fluids. 6. Electrolyte imbalance to include hypomagnesemia requiring parenteral replacement. 7. Diabetes mellitus type 2 showing stable blood sugars. 8. Chronic tobacco abuse in a current smoker. 9. Hypertension, stable. 10. Gout. 11. Peripheral neuropathy secondary to uncontrolled diabetes. PLAN: Will continue to follow the patient postoperatively. Dr. Dasilva has ordered a mechanical soft diet on him. He is to ambulate as directed. I anticipate if he does well overnight, that he will be discharged home. He started on p.o. pain management as well, therefore will saline lock him. Will continue with monitoring his vital signs as per protocol and address any other issues in regards to questionable chest pain. Will continue with reinforcing alcohol cessation and tobacco cessation as well. Until we can transition to outpatient management, will continue to monitor and treat as needed. #[id number] [facility]
[2020-12-22] MEDS: HYDROcodone 5MG/APAP 325MG 1 EA TAB PO PRN (20:12)
[2020-12-22] MEDS: LEVALBUTEROL NEBS 1.25 MG/3 ML VIAL NEB PRN (22:20)
[2020-12-23] MEDS: IV SET AND CAP CHANGE INJ INJ SCH (01:39)
[2020-12-23] MEDS: HYDROcodone 5MG/APAP 325MG 1 EA TAB PO PRN ×5 (02:37→23:10)
[2020-12-23] MEDS: PANTOPRAZOLE SODIUM IV 40 MG VIAL IV SCH (06:12)
[2020-12-23] MEDS: INSULIN LISPRO 100 UNITS/ML PEN SUBCU SCH ×4 (07:33→20:52)
[2020-12-23] MEDS ORDERED: MAGNESIUM SULFATE PREMIX 2GM 2 GM in PREMIX BAG 1 BAG IVPB ONE (07:53)
[2020-12-23] MEDS: ENOXAPARIN SODIUM 40 MG/0.4 ML SYG SUBCU SCH (08:46)
[2020-12-23] MEDS: LISINOPRIL 10 MG TAB PO SCH ×2 (08:46→20:14)
[2020-12-23] MEDS: ALLOPURINOL 300 MG TAB PO SCH (08:47)
[2020-12-23] MEDS: amLODIPine BESYLATE 5 MG TAB PO SCH (08:47)
[2020-12-23] MEDS: NICOTINE PATCH 14 MG TD SCH (08:47)
[2020-12-23] MEDS: REMOVE OLD PATCH TOP SCH (08:47)
[2020-12-23] MEDS: GABAPENTIN 300 MG CAP PO SCH ×3 (08:47→20:14)
[2020-12-23] MEDS: MAGNESIUM OXIDE 400 MG TAB PO SCH (08:53)
[2020-12-23] MEDS: SODIUM CHLORIDE 0.9% (FLUSH) 10 ML SYG IV SCH ×2 (08:55→20:14)
[2020-12-23] MEDS: metFORMIN HCL 500 MG TAB PO SCH ×2 (11:41→16:35)
--- NOTE | 2020-12-23 13:24 | PN ---
SUPERVISING PHYSICIAN: Alan Arnold MD DATE: 12/23/20 SUBJECTIVE: The patient has had his drain removed. He is doing well with his diet. He is ambulating. He has not had any complaints. His pain has been controlled. OBJECTIVE: VITAL SIGNS: Temperature 98, pulse 108, blood pressure 124/79, respirations 18, saturating 91% to 92% on room air. GENERAL: The patient looks to be resting comfortably in no acute distress. He is alert. CHEST: Clear to auscultation bilaterally. There is some notable chest wall discomfort on palpation on the left posterior aspect mid thoracic spine which also is worsened with deep inspiration. No obvious rhonchi or rales were noted. HEART: Regular rate and rhythm with no appreciable murmurs, gallops, or rubs. ABDOMEN: Obese but soft with a surgical dressing in place which is clean and dry. NEUROLOGIC: He is alert and oriented times three. LABORATORY: Blood sugars ranging between 92 and 107. Magnesium 1.4 this morning. RADIOLOGY: No additional radiographic studies. ASSESSMENT: 1. Postoperative day #3 for repair of a ventral hernia by Dr. Dasilva and Dr. Hutchinson. 2. History of pancreatis with no signs of acute pancreatitis at this time. 3. Resolved bowel obstruction secondary to #1. 4. Acute onset of the chest pain with no evidence of acute coronary syndrome, likely costochondritis, resolved, no signs of acute coronary syndrome. 5. Acute kidney injury, likely prerenal azotemia, now back to baseline levels with fluids. 6. Electrolyte imbalance to include hypomagnesemia requiring parenteral replacement. 7. Diabetes mellitus type 2 showing stable blood sugars. 8. Chronic tobacco abuse in a current smoker. 9. Hypertension, stable. 10. Gout. 11. Peripheral neuropathy secondary to uncontrolled diabetes. PLAN: Will continue to follow the patient with anticipation of discharging tomorrow. Dr. Dasilva has removed his drain. He is tolerating a diet. We will continue to monitor. I did start him on some p.o. magnesium today. Again, I anticipate discharging tomorrow. Until then, we will continue to monitor and treat as needed. [facility][id number] [facility]
[2020-12-24 05:35] VITALS: O2SAT 90
[2020-12-24] MEDS: PANTOPRAZOLE SODIUM IV 40 MG VIAL IV SCH (06:02)
[2020-12-24] MEDS: INSULIN LISPRO 100 UNITS/ML PEN SUBCU SCH ×2 (07:09→11:34)
[2020-12-24] MEDS: NICOTINE PATCH 14 MG TD SCH ×2 (08:12→08:20)
[2020-12-24] MEDS: metFORMIN HCL 500 MG TAB PO SCH (08:13)
[2020-12-24] MEDS: MAGNESIUM OXIDE 400 MG TAB PO SCH (08:13)
[2020-12-24] MEDS: amLODIPine BESYLATE 5 MG TAB PO SCH (08:13)
[2020-12-24] MEDS: GABAPENTIN 300 MG CAP PO SCH (08:13)
[2020-12-24] MEDS: ENOXAPARIN SODIUM 40 MG/0.4 ML SYG SUBCU SCH (08:14)
[2020-12-24] MEDS: LISINOPRIL 10 MG TAB PO SCH (08:14)
[2020-12-24] MEDS: ALLOPURINOL 300 MG TAB PO SCH (08:14)
[2020-12-24] MEDS: REMOVE OLD PATCH TOP SCH (08:17)
[2020-12-24] MEDS: SODIUM CHLORIDE 0.9% (FLUSH) 10 ML SYG IV SCH (08:23)
[2020-12-24] MEDS: LEVALBUTEROL NEBS 1.25 MG/3 ML VIAL NEB PRN (08:26)
[2020-12-24] MEDS: HYDROcodone 5MG/APAP 325MG 1 EA TAB PO PRN (09:59)
[2020-12-24 10:00] VITALS: BP 154/90; TEMP 98.4
--- NOTE | 2020-12-24 11:12 | DS ---
SUPERVISING PHYSICIAN: lAan Arnold MD ADMISSION DIAGNOSIS: 1. Large painful ventral hernia, nonreducible and most likely incarcerated. Scheduled for surgery per Dr. Steve Dasilva and Dr. Regino Hutchinson this morning. 2. Pancreatis most likely alcohol induced. 3. Partial bowel obstruction secondary to #1. 4. Acute kidney failure. His admitting creatinine is 1.34, his baseline is 0.7. 5. Diabetes mellitus type 2. 6. Chronic tobacco abuse. 7. Hypertension. 8. Gout. 9. Peripheral neuropathy secondary to uncontrolled diabetes. DISCHARGE DIAGNOSIS: 1. Postoperative day #4 for repair of a ventral hernia by Dr. Dasilva and Dr. Hutchinson. 2. History of pancreatis with no signs of acute pancreatitis at this time. 3. Resolved bowel obstruction secondary to #1. 4. Acute onset of the chest pain with no evidence of acute coronary syndrome, likely costochondritis, resolved, no signs of acute coronary syndrome. 5. Acute kidney injury, likely prerenal azotemia, now back to baseline levels with fluids. 6. Electrolyte imbalance to include hypomagnesemia requiring parenteral replacement. 7. Diabetes mellitus, type 2, showing stable blood sugars. 8. Chronic tobacco abuse in a current smoker. 9. Hypertension, stable. 10. Gout. 11. Peripheral neuropathy secondary to uncontrolled diabetes. REASON FOR ADMISSION: This is a 55 year-old male patient who presented to the Emergency Room due to a gradual onset of left-sided abdominal pain. He was actually in the hospital last week for alcohol-induced pancreatitis and also has a large ventral hernia. He had this pain that gradually came on over the last day or so. He came to the Emergency Room and prior to his admission, had some nausea but no vomiting. He did vomit quite a bit in the Emergency Room. He also had some pain and was given some morphine, Zofran and Phenergan. He actually had the hernia repaired in [place] [address] Clark in [place]. He did say the hernia had become increasingly larger. In the Emergency Room, he was given fluids and his lipase was 103. His CBC was unremarkable. Sodium was slightly low at 133 with a creatinine of 1.34, his baseline creatinine is about 0.7. I was called for admission to the hospital for pancreatitis. The patient was admitted to the hospital in stable condition. The patient continued to have pain, especially at that hernia site. I spoke with Dr. Dasilva this morning and he felt that the patient had an incarcerated hernia because it was unable to be reduced. He also felt that most likely it would cause a partial bowel obstruction. He spoke with Dr. Hutchinson and the patient was taken to surgery for repair of that hernia. LABORATORY: White count at discharge was 8,900, hemoglobin 11.5, hematocrit 34.2, platelet count 271,000. Differential was without a left shift. Chemistries were stable with normal electrolytes with sodium 136. Blood sugars were ranging between 92 and 107. Creatinine was 0.59. Urinalysis just showed a trace of intact blood. MICROBIOLOGY: COVID swab was negative. RADIOLOGY: CT of the abdomen and pelvis with contrast showed multiple mildly dilated loops of small bowel with air-fluid levels in several loops of bowel located within the large ventral hernia with mild degree of dilation that favors mild ileus or early partial obstruction. There is some residual peripancreatic fat stranding and lymph nodes, favored to represent persistent or previous subacute pancreatitis with no evidence of necrosis. There is a small, stable cystic lesion of the pancreatic head and neck which favor small pseudocysts or less likely IPMNs or small cystic neoplasms. Grossly stable retroperitoneal or peritoneal lymph nodes, favor reactive to pancreatitis. Similar appearance to 01/03/19. Severe atherosclerosis. Please see that report for details. He also had a chest x-ray postoperatively which showed possible small bilateral pleural effusions. SURGICAL CONSULTATION: Steve Dasilva MD. Please see his surgical consultation note for full details. PROCEDURES: Repair of incarcerated recurrent incisional hernia with Onlay mesh graft for incarcerated recurrent incisional hernia with obstruction. Please see Dr. Dasilva's operative note for details. HOSPITAL COURSE: Mr. Stark was admitted from the Emergency Room for concerns for small bowel obstruction with an incarcerated hernia. He was taken to surgery by Dr. Dasilva and assisted by Dr. Hutchinson. The hernia was repaired. He was taken care of postoperatively and had no complications postoperatively. He was able to tolerate a diet. He did have a drain placed in surgery, but this was removed prior to discharge. He was kept 24 hours after the drain was removed. He showed no complications and was continuing to tolerate a diet with no pain, was having bowel movements, passing gas and ambulating. It was felt he had clinically improved well enough to continue with outpatient management and followup with Dr. Dasilva in the outpatient setting. PLAN: Mr. Stark was discharged on 12/24/20. He is to followup with Dr. Dasilva 8 days after discharge. He is to followup with Dr. Estrada at [facility]. Activity: He is not to do any lifting or pulling. He can shower, but no tub baths. He was encouraged to push fluids. Diet is to resume usual diet including diabetic diet as tolerated. He was given instructions to call Dr. Dasilva or return to the ER should he have any concerning symptoms. Medications prescribed on discharge included mag oxide [id number] 400 mg daily. All other medications prior to hospitalization were continued. DISPOSITION: The patient was discharged home. CONDITION ON DISCHARGE: Stable and improved. [facility][id number] [facility]
== END 2020-12-24 11:35 | disposition home or self-care (01) | DRG 353 ==
LOC: ER 22:42 → OBSVTOIN 12-20 02:09 → MS 12-20 02:09
PROVIDERS: ADMIT Nurse Practitioner Acute Care; ATTEND Nurse Practitioner Family
PROC: BW211ZZ Computerized Tomography (CT Scan) of Abdomen and Pelvis using Low Osmolar Contrast (ICD-10-PCS; 2020-12-20)
PROC: 0WUF0JZ Supplement Abdominal Wall with Synthetic Substitute, Open Approach (ICD-10-PCS; principal; 2020-12-20 13:36)
DX: K43.0 Incisional hernia with obstruction, without gangrene (principal); K85.20 Alcohol induced acute pancreatitis without necrosis or infection; N17.9 Acute kidney failure, unspecified; E87.1 Hypo-osmolality and hyponatremia; F10.10 Alcohol abuse, uncomplicated; M94.0 Chondrocostal junction syndrome [Tietze]; E87.8 Other disorders of electrolyte and fluid balance, not elsewhere classified; E83.42 Hypomagnesemia; E11.65 Type 2 diabetes mellitus with hyperglycemia; I10 Essential (primary) hypertension; M10.9 Gout, unspecified; E11.42 Type 2 diabetes mellitus with diabetic polyneuropathy; F17.210 Nicotine dependence, cigarettes, uncomplicated; I44.4 Left anterior fascicular block; K21.9 Gastro-esophageal reflux disease without esophagitis; E66.01 Morbid (severe) obesity due to excess calories; Z20.822 Contact with and (suspected) exposure to COVID-19; Z79.84 Long term (current) use of oral hypoglycemic drugs; Z79.899 Other long term (current) drug therapy; Z90.49 Acquired absence of other specified parts of digestive tract; Y90.9 Presence of alcohol in blood, level not specified